=== PATIENT | female | born 1930 | race Caucasian/White ===

== ENCOUNTER 2016-07-31 17:30 | Inpatient (IN) | payer MEDICARE, OTHER ==
[~2016-07-31] VITALS: Ht 154.9 cm; Wt 56.8 kg
--- NOTE | ~2016-07-31 | CON ---
PATIENT'S NAME: [facility] AGE: 85 Y [address] ROOM: [address] [address] [place] [facility] [place] DATE: 07/31/2016 Consultation DISCHARGE DATE: 08/25/2016 FAMILY PHYSICIAN: Waldemar Franks MD ATTENDING PHYSICIAN: Mayo Mcmahan DATE OF CONSULTATION: 08/03/2016 REFERRING PHYSICIAN: Marissa Loo MD INDICATION: Pleural effusion. HISTORY OF PRESENT ILLNESS: This is an 85-year-old female, admitted for back pain that has been progressively getting worse over the last few weeks. She was evaluated by her primary care physician in [place] with a CT of the abdomen and pelvis which showed possible diskitis at L4 through S1 as well as right as right-sided pleural effusion and nodule pulmonary nodules at the lung bases. She has a history of breast cancer, lymphoma, PAF, thoracic aneurysm, and falls with a hip repair last year. She previously had a thoracentesis last year that was negative for malignancy. Currently, she denies any shortness of breath, PND, orthopnea, cough, wheezing, hemoptysis, or edema. Pain is controlled with pain pills right now. PAST MEDICAL HISTORY: Includes history of breast cancer, history of lymphoma, falls, hypertension, paroxysmal atrial fibrillation, and thoracic aortic aneurysm. ALLERGIES: SEE MAR. MEDICATIONS: See MAR. FAMILY HISTORY: History of diabetes and stroke. SOCIAL HISTORY: She denies any tobacco use. No alcohol or illicit drug use. REVIEW OF SYSTEMS: A 12-point review of systems is negative except for what is noted in the HPI. PHYSICAL EXAMINATION: VITAL SIGNS: Blood pressure 149/76, pulse 67, respirations 18, temperature PATIENT'S NAME: [facility] AGE: 85 Y [address] ROOM: [address] [address] [place] [facility] [place] DATE: 07/31/2016 Consultation DISCHARGE DATE: 08/25/2016 FAMILY PHYSICIAN: Waldemar Franks MD ATTENDING PHYSICIAN: Mayo Mcmahan 97.3, and she is 96% on 1 L nasal cannula. GENERAL: This is an 85-year-old female who is alert and oriented x3 and appears in no acute distress at the time of exam. HEENT: Head: Normocephalic and atraumatic. Eyes clear. NECK: Supple. No adenopathy. No carotid bruits or JVD. LUNGS: Decreased breath sounds at the right lung base with dullness on percussion. HEART: Regular rate and rhythm without murmur, gallop, or rub. ABDOMEN: Soft, nontender, and nondistended. Bowel sounds x4. EXTREMITIES: No cyanosis, clubbing, or edema. DIAGNOSTIC DATA: Sodium 138, potassium 3.9, CO2 25, BUN 15, and creatinine 0.7. WBC 9, hemoglobin 11.3, hematocrit 34.6, and platelets 225. A CT of the chest is still pending. Bedside ultrasound performed showed a right-sided moderate-to- large pleural effusion without loculation. There is no left-sided effusion. ASSESSMENT: 1. Right-sided pleural effusion, concerning for malignancy. 2. Acute respiratory failure due to right-sided pleural effusion. 3. Pulmonary nodules, enlarging in size, concern for malignancy. 4. History of breast cancer. 5. History of lymphoma. PLAN: We will plan for diagnostic and therapeutic right-sided thoracentesis. The indications, risks, benefits, and alternatives were discussed with the patient, and she has agreed to proceed with the procedure. We will follow up on Hematology and Oncology recommendations from today as well as make further recommendations pending the results from her fluid studies and cytology. Thank you for the consult and opportunity to participate in the patient's care. CELIA GASTELUM APRN FOR AUDRA AVILA MD [facility]/lexisl /[id number] d: 09/13/16 0230 t: 10/03/16 1351, CONSULTATION REPORT
--- NOTE | ~2016-07-31 | DS ---
PATIENT'S NAME: MICHELLE SOUSA [facility] AGE: 85 Y [address] ROOM: [address] [place] [id number] LOCATION: [facility] [place] ADMIT DATE: 07/31/2016 Discharge Summary DISCHARGE DATE: 08/25/2016 FAMILY PHYSICIAN: Waldemar Franks MD ATTENDING PHYSICIAN: Uvaldo GERARD FINAL DIAGNOSES: 1. 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 2. Acute hypoxic respiratory, now resolved. 3. Malignant right pleural effusion, status post PleurX drain. 4. Paroxysmal atrial fibrillation. 5. Essential hypertension. 6. Cauda equina syndrome, secondary to pathologic metastases. 7. Recurrent nausea. CONSULTANTS ON THE CASE: Dr. Gonzalez, Dr. Mata, Dr. Karlos Hills, Dr. Luis, in Palliative Care. PROCEDURES: L4-5 biopsy and aspiration on 08/03/[address] Hills, right thoracentesis on 08/03/[address] Luis, and right PleurX drain placement on 08/09/[address] Samayoa. HOSPITAL COURSE: Please see details of admission H and P by Dr. Kwaku Bailon. Briefly, the patient was admitted to [facility] with extensive back pain and weakness. Upon initial evaluation, the patient was found to have pulmonary nodules. Oncology was notified of her admission and followed along throughout the duration of her case. The patient's pain initially was controlled with [place] and Palliative Care was consulted on 08/01/2016. Throughout her entire hospital course, the patient battles with episodes of nausea and vomiting. Unclear what the true etiology was, secondary to multiple offending factors, most notably, chemotherapy, radiation, and medications. Dr. Hills was consulted, secondary to epidural tumor causing cauda equina type symptoms. Dr. Mata was consulted for further evaluation and treatment. On 08/02/2016, Palliative Care met with the patient and family to establish goals and symptom management. On the , Dr. Karlos Hills was also consulted and planned for L4-5 aspiration and biopsy. On 08/03/2016, Pulmonary consulted and felt the need for thoracentesis of the large right pleural effusion. This was accomplished without difficulty. Fluids were sent for further evaluation. Dr. Gonzalez ordered a PET scan on 08/08/2016 for staging. After further evaluation of her back pain and symptoms, TLSO brace was placed for any upright activity. The patient's appetite also waxed and waned throughout her stay depending on her courses of nausea. The patient had again a PleurX drain placed on 08/09/2016. She tolerated the procedure well. Outputs were recorded daily never greater than PATIENT'S NAME: MICHELLE SOUSA [facility] AGE: 85 Y [address] ROOM: [address] [address] LOCATION: [facility] [place] ADMIT DATE: 07/31/2016 Discharge Summary DISCHARGE DATE: 08/25/2016 FAMILY PHYSICIAN: Waldemar Franks MD ATTENDING PHYSICIAN: Uvaldo GERARD 300 mL. On the , radiation began with a total dose of 3000 fractions with 300 per episode. The patient developed a slight hypotension and was given albumin infusion. Blood pressure medications were held. We were able to resume her metoprolol on the without further complication. The patient suffered from some insomnia and Seroquel was started at bedtime with positive effects. The patient was established as DNR/DNI on 08/14/2016 per family discussion with Palliative Care. Respiratory Therapy continued severity scoring throughout her stay. The patient continued to work with physical and occupational therapies gaining strength and endurance as the radiation treatments continued. The patient was able to complete her radiation therapy on 08/25/2016. At that time, it was felt that she should pursue alf treatment for further convalescence and gaining of strength and endurance. The patient was transferred to [facility] under the care of Dr. Franks on 08/25/2016 with further followup with Dr. Hills, Dr. Mata, and Dr. Montero. DIAGNOSTICS: The patient underwent several radiologic exams throughout her stay here. Not all will be discussed in detail. Please see reports for that information. Most notably, MRI of the lumbar spine on the shows extensive lymphoma involvement of the lumbar spine especially at L4 and 5, pathologic fracture at L4, and epidermal tumor present producing a stenotic inferior lumbar canal, also to be noted is soft tissue involvement in the retroperitoneum. CT scan of the chest on 08/01/2016 shows worsening appearance, new large right pleural fluid collection, as well as posterior right upper lung mass and anterior right upper lung nodule, which is increased since prior imaging. PET scan done on 08/07/2016 showed multifocal osseous metastatic disease most prominent at L4, L5, and S1, metastases in the right lung, right pleura, mediastinum, and large malignant right pleural effusion. Also, noted is probable liver metastasis. Chest x-ray views post- thoracentesis show a right-sided pleural drainage catheter in place with stable positioning. Again, multiple laboratory studies were drawn throughout her stay. Highlights given here. On admission, sodium was 137, potassium 3.9, chloride 101, bicarb 26, glucose 106, BUN 19, creatinine 1.0, CRP was 1.29 on admission. Sodiums did show mild hyponatremia with a low at 128; and on day of discharge, it was 131. Creatinine and BUN remained stable throughout her stay. Pleural fluid exhibited a transudative pattern. On admission, white blood cell count was 8.2, hemoglobin 11.3, hematocrit 32.7, and platelets 221. Prior to discharge, hemoglobin was 8.7, hematocrit was 26.1, and platelets 190. Pleural fluid culture was negative at 3 days. Aspirate of the L4-L5 disk space also exhibited no growth at 3 days. Path report from the pleural fluid of the right thoracentesis shows adenocarcinoma and pathology of the L4-L5 bone and soft tissue biopsy shows metastatic carcinoma. Echo done on 08/06/2016 shows an EF of 45% to 50%. Moderate-to- concentric left ventricular hypertrophy. Grade 1 diastolic dysfunction. Left and right atrium are [id number] dilated. She does have moderate PATIENT'S NAME: MICHELLE SOUSA [facility] AGE: 85 Y [address] ROOM: [address] [place], [place] [address] LOCATION: [facility] [place] ADMIT DATE: 07/31/2016 Discharge Summary DISCHARGE DATE: 08/25/2016 FAMILY PHYSICIAN: Waldemar Franks MD ATTENDING PHYSICIAN: Uvaldo GERARD aortic regurgitation and severe tricuspid regurgitation. The patient has moderate pulmonary hypertension with pulmonary pressure of 54 mmHg. DISCHARGE INSTRUCTIONS: The patient is discharged to [facility] under the care of Dr. Franks with Dr. Hills, Dr. Montero, and Dr. Mata. Following on the patient, her code status is DNR. Diet is regular as tolerated. Weightbearing status is as tolerated with fall precautions. TLSO is to remain on while upright. The patient is to continue with occupational and physical therapies and respiratory therapy as needed. The patient does have a PleurX catheter in place drain every other day and as needed for shortness of breath. Drainage totals are to be recorded and called to Elin Nova on 09/08/[address] [facility]. The patient's rehab potential is fair. Discharge potential is fair. The patient and family are aware of her condition and prognosis on discharge. DISCHARGE MEDICATIONS: 1. Arimidex 1 mg daily at bedtime. 2. Colace 100 mg twice daily as needed. 3. Metoprolol 25 mg twice daily. 4. Zofran 4 mg 3 times daily before meals. 5. Lyrica 100 mg at bedtime. 6. Seroquel 50 mg at bedtime. 7. Tylenol 650 mg every 4 hours as needed. 8. Dulcolax suppository daily as needed. 9. Milk of mag 30 mL daily as needed. 10. Reglan 5 mg p.o. 3 times daily as needed. 11. MiraLAX 17 g daily as needed. 12. Compazine 10 mg every 6 hours needed. 13. Nucynta 50 mg every 4 hours as needed. We do appreciate participating in this patient's care and thank you very much for the ability to serve her while hospitalized at [facility]. Time spent coordinating details of discharge was greater than 30 minutes of which was spent coordinating with consulting physicians and Care Management, completion of medication reconciliation, education of the patient and family on the above-mentioned diagnoses. We spent 45 minutes in discharge planning and coordinationg care for this patient. DIMA CARMICHAEL FOR MEREDITH GILBERT MD [facility]/modl PATIENT'S NAME: MICHELLE SOUSA [facility] AGE: 85 Y [address] ROOM: [address] [address] LOCATION: [facility] [place] ADMIT DATE: 07/31/2016 Discharge Summary DISCHARGE DATE: 08/25/2016 FAMILY PHYSICIAN: Waldemar Franks MD ATTENDING PHYSICIAN: Uvaldo GERARD /[id number] d: 08/26/165 t: 09/06/16 1242, DISCHARGE SUMMARY
--- NOTE | ~2016-07-31 | ECHO ---
Transthoracic Echocardiography Report (TTE) Demographics Patient Name MICHELLE SOUSA Date of Study 08/06/2016 E Patient Number [id number] Visit Number [id number] Date of 1930 Room Number G3207 Gender Female Number Age 85 year(s) Referring Cigarette Machine Operator Racquel RVT, RDCS Physician Yara Physician Interpreting Kwaku Escamilla A Paint Crew Supervisor Physician MD Supervising Ordering Armaan Valentine MD, MD/MLP Physician Nurse Stress Knot Saw Operator Conclusions Summary The estimated left ventricular ejection fraction is 45-50%. Moderate to severe concentric left ventricular hypertrophy. Diastolic assessment reveals Grade I diastolic dysfunction. Moderately reduced right ventricular function. The left atrium is moderately dilated. The interatrial septum appears mobile without evidence of shunting. The right atrium is moderate to severely dilated. Moderate-severe mitral regurgitation by color Doppler. There is moderate aortic regurgitation by color Doppler. Severe tricuspid regurgitation by color Doppler. There is moderate pulmonary hypertension. The pulmonary pressure (RVSP) is 54 mmHg. Mild-moderate pulmonic valve regurgitation by color Doppler. There is reversal in the pulmonary vein flow. The interventricular septum is flattened which is consistent with right ventricular pressure / and or volume overload. Trivial posterior pericardial effusion. Procedure Type of Study TTE procedure:2D Echocardiogram, M-Mode, Doppler , Color Doppler. Procedure Date Date: 08/06/2016 Start: 10:35 AM Study Location: Inpatient Portable Technical Quality: Good visualization Indications:Pleural effusion. Appropriate Use Criteria: 9 Patient Status: Routine HR: 66 bpm BP: 94/41 mmHg M-Mode/2D Measurements LV Diastolic Dimension: 3.38 cm LV Systolic Dimension: 3.05 cm LV Septum Diastolic: 2.05 cm LV PW Diastolic: 2.11 cm AO Root Dimension: 3 cm Cardiac Output: 3.45 l/min AV Cusp Separation: 1.1 cm RV Diastolic Dimension: 2.53 cm LA volume: 29 ml LVOT: 2.3 cm RV Base: 2.79 cm LVOT VTI: 12.6 cm RV Mid: 2.81 cm LV Stroke volume: 52.32 ml TAPSE: 1.8 cm TDI-S': 4.51 cm/s Doppler Measurements AV Peak Velocity: 1.52 m/s MV Peak E-Wave: 0.78 m/s AV Peak Gradient: 9.24 mmHg MV Peak A-Wave: 0.66 m/s AV Mean Gradient: 6 mmHg MV E/A Ratio: 1.17 LVOT Peak Velocity: 0.54 m/s MV P1/2t: 60 msec TR Gradient:38.94 mmHg PV Peak Velocity: 0.68 m/s Estimated RAP:10 mmHg PV Peak Gradient: 1.85 mmHg Estimated RVSP: 49 mmHg Estimated PASP: 48.94 mmHg E' Septal Velocity: 0.02 m/s A' Septal Velocity: 0.04 m/s E' Lateral Velocity: 0.06 m/s A' Lateral Velocity: 0.04 m/s Findings Left Ventricle Moderate to severe concentric left ventricular hypertrophy. Diastolic assessment reveals Grade I diastolic dysfunction. The interventricular septum is flat. Septal hypokinesis Right Ventricle Moderately reduced right ventricular function. Left Atrium The left atrium is moderately dilated. The interatrial septum appears mobile without evidence of shunting. Right Atrium The right atrium is moderate to severely dilated. Mitral Valve Mild mitral annular calcification. Moderate-severe mitral regurgitation by color Doppler. Aortic Valve The aortic valve is moderately sclerotic. There is moderate aortic regurgitation by color Doppler. Tricuspid Valve Severe tricuspid regurgitation by color Doppler. There is moderate pulmonary hypertension. The pulmonary pressure (RVSP) is 54 mmHg. Pulmonic Valve Mild-moderate pulmonic valve regurgitation by color Doppler. Pericardial Effusion Trivial posterior pericardial effusion. Miscellaneous There is reversal in the pulmonary vein flow. Pleural Effusion No evidence of pleural effusion. Signature dtt: Hoa Ames dtd: 08/06/16 1035 Physician Self Edit
--- NOTE | ~2016-07-31 | CON ---
PATIENT'S NAME: KSENIA SOUSA [facility] AGE: 85 Y [address] ROOM: [id number] [place], [place] [address] [place] [facility] [place] DATE: 07/31/2016 Consultation DISCHARGE DATE: FAMILY PHYSICIAN: Waldemar Franks MD ATTENDING PHYSICIAN: Uvaldo AMES REFERRING PHYSICIAN: Marissa Loo MD Consult to Dr. Bansal. 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 The history of present illness is obtained from Mrs. Sousa who is an earnest, but discursive and imprecise historian; her foster son and daughter- in-law who are helpful; from Dr. Bansal; review of the current and old [facility] chart; and review of the [facility] records. Mrs. Sousa makes a point she reached her zenith, following a crippling fall in August 2015, by May 2016. She had returned to her home [place] at [place]. She lived alone. She was no longer driving. She could not vacuum the house or perform heavy housework, but was able to do her own laundry. She was capable of self-care. She no longer participated in occupational or physical therapy and had no formal or informal exercise program. She used a 4-point walker on frequent occasions in her house, but was using it less frequently. Five weeks prior to her admission, the patient developed some pain in the lumbosacral area, which has gradually begun to radiate in an L4-L5 distribution, greater on the left than the right, associated with progressive weakness, greater in the left than the right. Approximately 1 month ago, she went to the emergency room in [place] and oral steroids and acetaminophen #3 were prescribed with mild benefit. However, the patient had persistent back pain. The pain started to interfere with her sleep and became disabling. Eventually, she fell when she got out of the bathroom. She bent over to case picker some crackers and her left leg crippled. She had a lifeline and summoned the rescue squad. She was placed in an ambulance and taken to the emergency room where oral steroids were prescribed again. This occurred approximately 2 weeks prior to her [facility] admission. The patient developed progressive disability and pain. The patient saw Leonila Singh APRN in [place]. The patient recalls she had a CAT scan, which may have been a CAT scan of the lumbar spine. There were changes suspicious for diskitis. Since the pain was disabling, she was transferred to Dr. Ames[facility] Hospitalist [facility] in [place]. White count was 8200 with 75% neutrophils and 13% lymphocytes. The hemoglobin is 11, the MCV was 94, the PATIENT'S NAME: KSENIA SOUSA [facility] AGE: 85 Y [address] ROOM: [id number] [place] [id number] [place] [facility] [place]: 07/31/2016 Consultation DISCHARGE DATE: FAMILY PHYSICIAN: Waldemar Franks MD ATTENDING PHYSICIAN: Uvaldo AMES platelets were 221K. The CMS revealed the albumin was low at 3.2 g/dL, but was otherwise unremarkable. The LDH was elevated at 378 International Units/L. The CRP was elevated at 1.29 mg/dL. An MRI of the lumbar spine revealed the lower spinal cord was normal. There was cauda equina nerve root redundancy in the mid lumbar canal secondary to inferior stenosis. There was complete replacement of L4-L5 vertebra by abnormal marrow signal, most suspicious of cancer, particularly lymphoma. There was a pathologic compression fracture of L4 with height loss. Much of the S1 vertebral body was replaced and there were lesions within L1, L2 and L3. At L4 and L5, posterior elements were involved, thickened and expanded by presumed tumor. There was soft tissue extension of tumor around the bones. The soft tissue tumor involved the epidural space from L3-4 down into the sacral canal producing spinal stenosis at L3-L4, L4-L5, and L5-S1. Passing and exiting nerve roots could be impinged. The foramina were stenotic, especially on the left-sided L4-L5. In the retroperitoneum, there was an ill-defined collar of soft tissue surrounding the infrarenal aorta. Bone lesions were present within the bilateral ilium medially around the SI joints. A chest x-ray revealed cardiomegaly, a thoracic aortic aneurysm, patchy opacity in the upper lobe of the right lung compatible with infiltrate and atelectasis, and a small volume of pleural fluid in the lower left and right hemithorax. A CAT scan of the thorax reveals a right pleural effusion and pulmonary nodule. The patient is referred for further recommendations. The patient has a history of breast cancer. In the fall of 2010, the patient palpated a mass in both breasts. She reported for evaluation. After evaluation and staging, the patient underwent a bilateral mastectomy on 05/10/2011. The patient had bilateral breast cancer. The patient had stage IIB breast cancer in both breasts. The right breast tumor was 3.1 cm, 1/2 axillary nodes was involved, and there was extranodal extension. The tumor was grade 2. Estrogen and progesterone receptors were positive. HER2 was not amplified (1+). The left breast tumor was 2.5 cm and 1/11 lymph nodes was involved with extranodal extension. Estrogen receptors were positive and progesterone receptors were negative. On 04/09/2012, docetaxel and cyclophosphamide were administered, but these were stopped after 1 cycle. The patient was on letrozole from August 2011 to November 2013 but did not adhere further. Oncotype DX score was 13 on one of the cancers and 40 on the other, which were low risk and high risk respectively. From the information available on the chart, it is not clear which Oncotype result was obtained on which breast. Mrs. Sousa has a history of non-Hodgkin's lymphoma. In 2006, the patient developed abdominal pain. 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 The presumption was she had an aggressive lymphoma. From August through November 2006, the patient received 6 cycles of R-CHOP with complete remission and there has been no evidence of PATIENT'S NAME: KSENIA SOUSA [facility] AGE: 85 Y [address] ROOM: [id number] [place], [place] [address] [place] [facility] [place] DATE: 07/31/2016 Consultation DISCHARGE DATE: FAMILY PHYSICIAN: Waldemar Franks MD ATTENDING PHYSICIAN: Uvaldo AMES Dr. performed a right thoracentesis when Mrs. Sosua was hospitalized following a damaging fall leading to a right femur fracture and fractured the odontoid process of C2. On 11/22/2015, Dr. Luis recommended a right thoracentesis because he was troubled by a 2-mm nodule in the upper lobe of the right lung as well as an 8-mm nodule in the upper lobe of the right lung. On 11/28/2015, the thoracentesis revealed rare clusters of atypical cells. The patient saw Dr. Loo in followup on 01/12/2016 and arrangements were made for evaluation in June of 2015. The patient was unable to follow up. ACTIVE MEDICAL PROBLEMS, CHRONIC AND DIAGNOSED: 1. Essential arterial hypertension noted in 2003. This may have been renovascular as Dr. Jean-Paul Hills placed a renal artery stent. 2. Atherosclerotic vascular disease(?). The patient is on cilostazol. 3. Ascending aortic aneurysm. On 09/27/2015, the aneurysm was 5.8 cm and it is now 6.1 cm. The patient has been evaluated by Dr. Edwardo Samayoa who visited with her about the pros and cons of resection of this aneurysm. The patient has decided to forego this opportunity. 4. Significant mitral regurgitation, moderate aortic regurgitation, and concentric left ventricular hypertrophy noted on CAT scan. 5. Paroxysmal atrial fibrillation, noted in 2003. The patient was medically converted at that time. She does not recall being converted mechanically. She has not been on anticoagulation. 6. Osteopenia with a T-score of -2.2 in August of 2015. The patient has been on denosumab, calcium, and vitamin D. 7. Nocturnal hypoxemia. The patient did not adhere to a recommendation for a sleep study. 8. Allergic rhinitis, treated with nonsedating histamines. 9. "Thyroid goiter.". 10. Hypercholesterolemia, noted in 2013. 11. 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 ACUTE MEDICAL ILLNESSES (RESOLVED), PAST SURGERIES, INJURIES: 1. 1952, appendectomy. 2. 1952, tonsillectomy and adenoidectomy. 3. 1991, fractured nose. 4. 1992, Varicella zoster virus involving a left lower lumbar vertebra. 5. 2004, right kidney arterial stent placed around the time she was admitted for initial characterization and treatment of atrial fibrillation. 6. 2006, biopsy to confirm strict non-Hodgkin's lymphoma. 7. 2010, (05/10) bilateral mastectomy for bilateral breast cancer as noted above. 8. 2015, (07/27) fall leading to a right femoral neck fracture requiring a PATIENT'S NAME: AL[facility]KSENIA [facility] AGE: 85 Y [address] ROOM: [place] [address] [place] [facility] [place]: 07/31/2016 Consultation DISCHARGE DATE: FAMILY PHYSICIAN: Waldemar Franks MD ATTENDING PHYSICIAN: Uvaldo AMES right hip hemiarthroplasty and C2 odontoid process fracture, requiring an anterior odontoid screw fixation on 11/05/2015. 9. Right ultrasound-guided thoracentesis on 11/27/2015. 10. 0, para 0, abortus 0. MEDICATIONS: Upon admission, 1. Acetaminophen. 2. Acetaminophen with codeine. 3. Albuterol inhaler. 4. Ascorbic acid 500 mg p.o. daily. 5. Calcium with vitamin D 1000 mg p.o. daily. 6. Hydralazine 25 mg p.o. b.i.d. 7. Metoprolol 25 mg p.o. b.i.d. 8. Multivitamins 1 tablet daily. 9. Pregabalin 50 mg daily. ADVERSE REACTIONS TO MEDICATIONS, TRANSFUSIONS, ALLERGIES: 1. No known allergies. 2. No transfusions. TOBACCO: None. ALCOHOL: None. CAFFEINE: 1-2 cups of coffee a day. IMMUNIZATIONS: Positive flu. Positive Pneumovax. Negative tetanus. Negative varicella zoster virus. FAMILY HISTORY: A brother of prostate cancer when he was older. SOCIAL HISTORY: The patient was born in [facility] and graduated from the [employer]. The patient worked at a [employer] home. She and was for 13 years, but has been since 1985. The patient had no children, but has had many foster children. One of her foster children currently lives in [place], [place] and the other lives in [place]. The patient, as noted, lives at her home outside [place]. She attends the [employer]. PATIENT'S NAME: KSENIA SOUSA [facility] AGE: 85 Y [address] ROOM: [address] [address] [place] [facility] [place] DATE: 07/31/2016 Consultation DISCHARGE DATE: FAMILY PHYSICIAN: Waldemar Franks MD ATTENDING PHYSICIAN: Uvaldo AMES REVIEW OF SYMPTOMS: 1. Nocturia 3-4 times at night. 2. The patient has had mild dysphagia since her C2 odontoid process fracture repair. 3. Subjective cold intolerance. 4. Longstanding tinnitus. 5. Mild asymptomatic heart palpitations. 6. Mild constipation, unchanged. PHYSICAL EXAMINATION: VITAL SIGNS: Pulse 72 and regular, blood pressure 140/55, respiratory rate 20, temperature 97.5, height 61 inches, weight 55.5 kg (122 pounds), and BMI 23.1 kg/m2. GENERAL: Well-developed, well-nourished, 85-year-old, female, in no acute distress. HEENT: Unremarkable. LYMPH NODES: None palpable. NECK: Without JVD or carotid bruits. SKIN: Seborrheic keratoses. waxy papules. CHEST: Decreased breath sounds at the right base to the scapula. CV: Irregularly irregular rhythm with no murmurs, bruits, or adventitious sounds. BREASTS: Status post bilateral mastectomy. ABDOMEN: No masses, tenderness, or organomegaly. There is a healed scar in the right lower quadrant of the abdomen, running from [place] to [place]. GENITAL: Not examined. RECTAL: Not examined. EXTREMITIES: Pulses 2+ in the upper extremities without peripheral edema. Compression devices are present in the lower extremities. Strength 2/5 in the left leg, 3/5 in the right leg. NEURO: Babinski plantar. The patient is oriented, alert, and appropriate. IMPRESSION: 1. An 85-year-old woman with a 4-6 week history of progressive, disabling back pain in the lumbosacral distribution with complete replacement of the L4 and L5 vertebra by abnormal marrow signal, an L4 pathologic compression and evidence of soft tissue extension of tumor and bony involvement of other vertebra and the ileum. 2. Pertinent positive history includes past bilateral breast cancer and past lymphoma. The patient had an aggressive lymphoma, but has been in a complete remission since she was treated in 2006. A late remission would be rare. On the other hand, the patient has a high risk for recurrence of breast cancer and this pattern is quite compatible with recurrence of breast cancer. She did not adhere to the recommendations for adjuvant PATIENT'S NAME: KSENIA SOUSA [facility] AGE: 85 Y [address] ROOM: [place] [address] [place] [facility] [place]: 07/31/2016 Consultation DISCHARGE DATE: FAMILY PHYSICIAN: Waldemar Franks MD ATTENDING PHYSICIAN: Uvaldo AMES radiation therapy and did not adhere to the recommendations for adjuvant aromatase inhibitors for longer than 2 years. 3. Recurrent breast cancer is a treatable disease. RECOMMEND: Diagnostic: 1. Right thoracentesis by Dr. Luis. 2. Radiation Oncology consultation from Dr. Mata. 3. Evaluation for an L4 biopsy and kyphoplasty by Dr. Karlos Hills. 4. CEA and CA 27-29. Treatment: 1. Depends on the findings. Patient education: 1. Made the point we suspect she has recurrent breast cancer metastatic to the bone and extending to the soft tissue, which is a treatable disease. 2. Made the point that the only way to confirm this working diagnosis would be with a biopsy and discussed the rationale for the consultations. NITA MENDEZ MD GKB/modl /[id number] CC: MD Triston Murphy MD, PhD MD Jarvis Jones MD d: 08/03/16 0035 t: 08/06/16 1346, CONSULTATION REPORT
--- NOTE | ~2016-07-31 | HP ---
PATIENT'S NAME: MICHELLE SOUSA [facility] AGE: 85 Y [address] ROOM: [place] [address] [place] [facility] [place]: 07/31/2016 History & Physical DISCHARGE DATE: FAMILY PHYSICIAN: Waldemar Franks MD ATTENDING PHYSICIAN: Uvaldo GERARD DATE OF SERVICE: CHIEF COMPLAINT: Back pain. HISTORY OF PRESENT ILLNESS: The patient is an 85-year-old female with a past medical history of breast cancer, status post mastectomy with chemoradiation; Non-Hodgkin's lymphoma in 2006, status post chemo and radiation; history of multiple falls with hip fracture, status post repair; and odontoid fracture with screw in 2015; paroxysmal atrial fibrillation, not on anticoagulation; and thoracic aortic aneurysm, who presents here from PCP's office with possible diskitis. The patient reports progressive several-week history of bilateral lower extremities pain and ache, radiating from the back to her lower extremity, left greater than right. The patient reports that pain has been progressively getting worse and has had weakness of her lower extremity. She also reports some numbness around her left lower extremity. She describes chest pain as shooting, starting from the back, radiating to her lower extremity, left greater than the right. She denies any saddle-like paraesthesia, and urinary and bladder incontinence. The patient denies fever, chills, night sweats, chest pain, shortness of breath, abdominal pain, nausea, vomiting, or diarrhea. She reports of weight loss; however, she attributes it to water loss due to diuretic use. She is currently off diuretics. The patient was seen by her PCP at [place] and had CT with contrast done, which shows L4 through S1 changes with suspicious for diskitis. CT chest also shows some incidental right pleural effusion with 3 nodules, the greatest one with 36 mm x 15 mm. PAST MEDICAL HISTORY: 1. History of breast cancer. 2. History of lymphoma. 3. Fall. 4. Hypertension. 5. Paroxysmal atrial fibrillation. 6. Thoracic aortic aneurysm. PAST SURGICAL HISTORY: 1. Odontoid screw fixation in October 2015. PATIENT'S NAME: MICHELLE SOUSA [facility] AGE: 85 Y [address] ROOM: [place] [address] [place] [facility] [place]: 07/31/2016 History & Physical DISCHARGE DATE: FAMILY PHYSICIAN: Waldemar Franks MD ATTENDING PHYSICIAN: Uvaldo GERARD 2. Mastectomy. 3. Right hip fracture with repair. FAMILY HISTORY: History of diabetes and stroke run in the family. SOCIAL HISTORY: The patient lives by herself. She does not have a biological children, but reports of having foster kids. She denies smoking or drinking. ALLERGIES: NO KNOWN ALLERGIES. MEDICATIONS: 1. Tylenol 325 mg. 2. Tylenol with codeine No. 3. 3. Albuterol. 4. Ascorbic acid. 5. Hydralazine 25 mg b.i.d. 6. Lopressor 25 mg b.i.d. 7. Multivitamin. 8. Pregabalin. REVIEW OF SYSTEMS: All 10 systems were evaluated. All negative except stated on the HPI. PHYSICAL EXAMINATION: VITAL SIGNS: Temperature 98, blood pressure 157/72, pulse 100, respiratory rate 16, O2 sat 85 on room air. GENERAL APPEARANCE: The patient is alert and awake, in no acute distress. HEENT: Moist oral mucosa. Extraocular muscles are intact. NECK: No supraclavicular or cervical lymph nodes noted. Neck is supple. LUNGS: Clear to auscultation bilaterally. No rhonchi, rales, or wheezing. CARDIOVASCULAR: Regular rate and rhythm. No murmur, rales, or gallops. No edema. ABDOMEN: Soft, nontender, nondistended, bowel sounds present. SKIN: Warm to touch. No lesion appreciated. EXTREMITIES: No edema. No axillary nodes appreciated. NEUROLOGICAL: Alert and oriented x3. Left lower extremity strength 4/5. Sensory grossly intact. LABORATORY DATA: There are no current labs. ASSESSMENT AND PLAN: PATIENT'S NAME: MICHELLE SOUSA [facility] AGE: 85 Y [address] ROOM: [place] [address] [place] [facility] [place]: 07/31/2016 History & Physical DISCHARGE DATE: FAMILY PHYSICIAN: Waldemar Farnks MD ATTENDING PHYSICIAN: Uvaldo GERARD The patient is an 85-year-old female with a past medical history of breast cancer, lymphoma, fall, hypertension, paroxysmal atrial fibrillation, who presents here from PCP's office for possible diskitis. 1. Possible diskitis. CT done at PCP's office with contrast shows possible diskitis of L4-S1. MRI was not required at that location, thus the patient is admitted for hospital. We will acquire MRI with and without contrast to further investigate L4-S1 lesion. No antibiotics will be initiated until diagnosis is confirmed. However, if the patient shows any signs of sepsis, we will consider initiating antibiotics. 2. Back pain with radiculopathy. The patient shows left lower extremity weakness 4/5, and it is radiculopathic pain. Pain control. We will acquire MRI to further investigate lesion. 3. Incidental lung nodules. Compared to CT chest done in August 2015, there were no nodules present, however, the patient was noted to have lung nodules on this image. We will hold off any imaging with contrast as the patient has received contrast today. We will follow up with renal function panel and repeat CT chest, abdomen, and pelvis with contrast to further investigate malignancy as the patient is in risk factor since she has a history of lymphoma and breast cancer. We will acquire CEA and CA 27-[address] Loo. We will consult Oncology in the morning. 4. Acute hypoxic respiratory failure. The patient's O2 sats in 85 on room air. No history of chronic hypoxic respiratory failure. We will start oxygen supplementation. We will acquire chest x-ray PA and lateral for further investigation, then follow up clinically. 5. Paroxysmal atrial fibrillation. Regular rhythm, at least on physical. However, the patient is on tele monitor. The patient is not on anticoagulation as the patient requested not to be placed on chronic anticoagulation. 6. Hypertension. We will continue home medications. 7. Thoracic aortic aneurysm. Last imaging done last year shows 6 cm aneurysm. We will follow clinically. The patient knows about the aneurysm and states she is not ready for surgery. 8. Deep venous prophylaxis, on heparin 5000 units t.i.d. 9. Discussed about code status. The patient is full code. Greater than 30 minutes was spent on admission and plan. MD RYAN CARMICHAEL/jaime PATIENT'S NAME: MICHELLE SOUSA [facility] AGE: 85 Y [address] ROOM: [place] [address] [place] [facility] [place]: 07/31/2016 History & Physical DISCHARGE DATE: FAMILY PHYSICIAN: Waldemar Franks MD ATTENDING PHYSICIAN: Uvaldo GERARD /[id number] D: 415 T: 134 HISTORY & PHYSICAL
--- NOTE | ~2016-07-31 | INT ---
PATIENT'S NAME: KSENIA SOUSA [facility] AGE: 85 Y [address] ROOM: [place] [address] [place] [facility] [place]: 07/31/2016 Oncology Report DISCHARGE DATE: FAMILY PHYSICIAN: Waldemar Franks MD ATTENDING PHYSICIAN: Uvaldo GERARD RADIATION THERAPY INTERVAL/PROGRESS NOTE DATE OF SERVICE: 08/15/2016 REFERRING PHYSICIAN: Marissa Loo MD DIAGNOSIS: Metastatic breast cancer to the LS spine. HISTORY OF PRESENT ILLNESS: Ksenia is an 85-year-old female, who was seen in weekly radiation therapy checks. The patient is currently at a dose of 1200 cGy out of 3000 cGy to her lumbosacral spine. The patient complains of left leg pain. She is currently an inpatient at [facility]. She has a Pleur-evac chest tube in place. The patient is wearing a TLSO immobilization device. She is on oxygen per nasal cannula. The patient feels she is breathing better. She still has pain to her lower back area. She states she is up with physical therapy in her room. The patient has pain to the right shoulder. She states she has difficulty with movement of the right shoulder secondary to pain. Alex Peterson APRN, acting as Dr. Agudelo's scribe for the physical examination, impression, and plan. PHYSICAL EXAMINATION: VITAL SIGNS: Temperature 98.4, pulse 76, respiratory rate 16, blood pressure 110/74, and oxygen saturation 94% on room air. Her pain was 5/10. Her weight is 70.4 kg. SKIN: No changes to the skin and her lumbosacral spine region. EXTREMITIES The patient's gait was not tested as she was sitting in the wheelchair. Patient has nasal cannula oxygen at 2 L. The patient has yellow justina fluid in her pleur-evac drainage tube. IMPRESSION AND PLAN: An 85-year-old female with metastatic breast cancer to the lumbosacral spine. We will continue with treatment. Dr. Agudelo will review the patient's films for any indication of treatment to the right shoulder. PATIENT'S NAME: KSENIA SOUSA [facility] AGE: 85 Y [address] ROOM: [place] [address] [place] [facility] [place]: 07/31/2016 Oncology Report DISCHARGE DATE: FAMILY PHYSICIAN: Waldemar Franks MD ATTENDING PHYSICIAN: Uvaldo GERARD ALEX PETERSON APRN FOR SHRUTHI AGUDELO MD, PHD LAD/modl /[id number] CC: MD Waldemar Hong MD Dennis P McGowan, MD David A Minnick, MD d: 08/15/16 1739 t: 08/26/16 0947, INTERVAL NOTE
--- NOTE | ~2016-07-31 | OR ---
PATIENT'S NAME: MICHELLE SOUSA [facility] AGE: 85 Y [address] ROOM: [place] [address] LOCATION: [facility] [place] ADMIT DATE: 07/31/2016 OR/Procedure Report DISCHARGE DATE: FAMILY PHYSICIAN: Waldemar Franks MD ATTENDING PHYSICIAN: Uvaldo GERARD SURGEON: Edwardo Chin DO APPLICATION PACKAGER: DATE OF PROCEDURE: 08/09/2016 PREOPERATIVE DIAGNOSES: 1. Recurrent right pleural effusion. 2. Stage IV breast carcinoma. 3. History of lymphoma. POSTOPERATIVE DIAGNOSES: 1. Recurrent right pleural effusion. 2. Stage IV breast carcinoma. 3. History of lymphoma. PROCEDURE PERFORMED: Insertion of right PleurX catheter. REFERRING PHYSICIAN: Mono Gonzalez MD BRIEF HISTORY: Mrs. Sousa is an 85-year-old white female with the above- noted diagnosis. She has been brought to the operative suite today for placement of a right PleurX drain. Informed consent has been obtained. DESCRIPTION OF PROCEDURE: The right lateral chest wall and anterior chest wall were sterilely prepped and draped in the usual fashion. After appropriate IV sedation was achieved, 1% lidocaine was used to infiltrate 2 spots anteriorly and 1 in the mid axillary line. Under fluoroscopic guidance, we accessed the pleural space after creating 2 stab incisions. The catheter was then tunneled subcutaneously and placed into the pleural space via the sheath and dilator assembly. Sheath was removed, and the catheter was secured in position with 0 silk. The catheter was connected to suction. Approximately 850 mL of pleural fluid was withdrawn easily from the pleural space, and the patient tolerated the procedure well. She was transferred to the regular recovery room in stable condition. EDWARDO CHIN DO MCB/modl PATIENT'S NAME: MICHELLE SOUSA [facility] AGE: 85 Y [address] ROOM: [place] [address] LOCATION: [facility] [place] ADMIT DATE: 07/31/2016 OR/Procedure Report DISCHARGE DATE: FAMILY PHYSICIAN: Waldemar Franks MD ATTENDING PHYSICIAN: Uvaldo GERARD /[id number] d: 08/22/16 1803 t: 08/23/16 0743, OPERATIVE SUMMARY
--- NOTE | ~2016-07-31 | CON ---
PATIENT'S NAME: MICHELLE SOUSA [facility] AGE: 85 Y [address] ROOM: [place] [address] LOCATION: [facility] [place] ADMIT DATE: 07/31/2016 Consultation DISCHARGE DATE: FAMILY PHYSICIAN: Waldemar Franks MD ATTENDING PHYSICIAN: Uvaldo GERARD DATE OF CONSULTATION: 08/02/2016 REFERRING PHYSICIAN: Marissa Loo MD TIME: 9:30 p.m. HISTORY OF PRESENT ILLNESS: Ms. Sousa is an 85-year-old white female with a history of breast cancer and also lymphoma in the past, was admitted with a 2-week history of increasing left leg weakness, left leg pain, and some degree of back pain, was suspected of having a diskitis, was transferred to the [facility] on July 31 for further evaluation. No loss of bowel or bladder control. Reports some weakness in her left leg but not clearly in the foot, has some numbness in the left leg, not sure how significant her back pain is. Also, not sure how significant the left leg pain is. She has not felt ill recently. No loss of weight. No fevers, chills, or sweats. No infections elsewhere. PAST MEDICAL HISTORY: Has an odontoid fracture and a right hip fracture in the past. Has cervical spondylosis with some degree of stenosis in her neck. History of breast cancer, history of lymphoma, atrial fibrillation, hypertension, and thoracic aneurysm. HABITS: Does not smoke. Does not drink alcohol. No drug abuse. MEDICATIONS: Does take Lyrica. No anticoagulants for the atrial fibrillation. Not on medications for osteoporosis. See list for other medicines. FAMILY MEDICAL HISTORY: Diabetes and stroke. REVIEW OF SYSTEMS: As above. PERSONAL AND SOCIAL HISTORY: Lives by herself. PATIENT'S NAME: MICHELLE SOUSA [facility] AGE: 85 Y [address] ROOM: [place] [address] LOCATION: [facility] [place] ADMIT DATE: 07/31/2016 Consultation DISCHARGE DATE: FAMILY PHYSICIAN: Waldemar Franks MD ATTENDING PHYSICIAN: Uvaldo GERARD ALLERGIES: NO KNOWN ALLERGIES. PHYSICAL EXAMINATION: GENERAL: White female, in no distress. HEENT: Hears and sees. NECK: Nontender. Incision healed. Moves without pain. SPINE: Thoracic spine: Nontender to percussion. Lumbar spine: Nontender to percussion. PELVIS: Stable. HEART: Pulse rate is regular. LUNGS: Able to take in a deep breath. ABDOMEN: Soft, nontender, and nondistended. NEUROLOGIC: Sensation is intact in the upper extremities, lower extremities, and torso. Motor strength; biceps 5/5 bilaterally, triceps 5/5 bilaterally, wrist extensors 5/5 bilaterally, nursing officer are 5/5 bilaterally, intrinsics 5/5 bilaterally, iliopsoas 5/5 on the right and 3/5 on the left, quadriceps 5/5 bilaterally, anterior tib 5/5 on the right and 4/5 on the left, extensor hallucis longus 5/5 bilaterally, gastrocs 5/5 bilaterally. Tone is normal. Straight leg raise is negative. Bowstring test is negative. Tinel's over the lateral femoral cutaneous nerves is negative bilaterally. Distal pulses are present. No pedal edema. IMAGING: MRI of the low back shows lateral compression fracture of lumbar 4 with changes within the marrow. Also, changes in lumbar 5 and to a lesser degree, the sacrum and other levels. Soft tissue in the epidural space from lumbar 3, 4 down to the sacrum and also paraspinous tissues. CT scan of the lumbosacral spine shows mottled appearance to the lumbar 4 and lumbar 5 vertebral bodies and lesser degree the sacrum. Left lateral compression of lumbar 4 vertebrae. No bursting of the bone. CT scan of the pelvis, no involvement of either hip. Hemiarthroplasty in place on the right. X-rays of the low back, left lateral compression of lumbar 4. LABORATORIES: C-reactive protein slightly elevated at 1.29. Sedimentation rate normal at 26. White blood count 8.2, hemoglobin 11.0. ASSESSMENT AND PLAN: Most likely destruction of cancer but certainly infection can be the great imitator. Has had a previous history of lymphoma and breast cancer. Also, discussed if this were cancer, vertebral body augmentation likely would improve the back pain but not likely improve neuropathic leg pain or weakness. On repeated discussions with Ms. Sousa, not clear how significant her back pain is. Certainly, she has only mild weakness, not only consistent with the PATIENT'S NAME: ARNALDO SOUSALIS Yamel [facility] AGE: 85 Y [address] ROOM: [address] [address] LOCATION: [facility] [place] ADMIT DATE: 07/31/2016 Consultation DISCHARGE DATE: FAMILY PHYSICIAN: Waldemar Franks MD ATTENDING PHYSICIAN: Uvaldo GERARD lumbar 5 nerve root on the left but also has some weakness about her iliopsoas which cannot be explained by the soft tissue masses. Possible that she may also have some myelopathy from her known stenosis in the cervical spine or previous odontoid fracture. No evidence of any destruction about the left hip. At this time, we will do a biopsy of lumbar 4 and lumbar 5 and attempt at aspiration of this to be absolutely sure there is no infection. We will place her in a soft thoracolumbosacral orthosis and mobilizer. If clearly she has significant back pain, we would offer her a staged vertebral body augmentation. If it is lymphoma and neuropathic leg pain remained significant, chemotherapy is likely to be helpful and possibly even radiation therapy. Ms. Sousa understands the plan of treatment. CAROLA VILLELA MD DPM/jaime /[id number] d: 08/03/16 175 t: 08/08/16 180, CONSULTATION REPORT
--- NOTE | ~2016-07-31 | INT ---
PATIENT'S NAME: KSENIA SOUSA [facility] AGE: 85 Y [address] 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 HISTORY OF PRESENT ILLNESS: Ksenia is an 85-year-old female, who was seen in weekly radiation therapy visits. She is at a dose of 2400 cGy out of 3000 cGy to the lumbosacral spine. The patient states her pain is much improved. She is not having low back or left hip pain. She states in the evening her left leg starts to hurt. The patient takes a pain pill which alleviates her pain. The patient is wearing a TLSO brace while she is up. Cindy Mckeon APRN, acting as Dr. Mata's scribe for the physical examination, impression, and plan. PHYSICAL EXAMINATION: VITAL SIGNS: Temperature 97.6, pulse 70, respiratory rate 16, blood pressure 119/45, and oxygen saturation 94% on room air. Pain was 3/10. Weight was 52.8 kg, down from 54.3 kg last week. GENERAL APPEARANCE: The patient is alert and oriented x3. NEUROLOGIC: Gait was not tested as she was in the wheelchair. The patient has a TLSO brace on. SKIN: Patient's skin was checked while she was being positioned on the treatment table. No redness or skin breakdown noted to the posterior low back or inguinal creases in the front. IMPRESSION AND PLAN: The patient has 2 treatment fractions left before completing her current prescription. The patient will be given a 1-month followup appointment. We will continue with treatment. PATIENT'S NAME: KSENIA SOUSA [facility] AGE: 85 Y [address] ROOM: [place] [address] [place] [facility] [place] DATE: 07/31/2016 Oncology Report DISCHARGE DATE: FAMILY PHYSICIAN: Waldemar Franks MD ATTENDING PHYSICIAN: Uvaldo GERARD AVI YOUNG MD, PHD LAD/modl /[id number] CC: MD Waldemar Hong MD Dennis P McGowan, MD David A Minnick, MD d: 08/22/16 1517 t: 09/05/16 1150, INTERVAL NOTE
--- NOTE | ~2016-07-31 | OR ---
PATIENT'S NAME: MICHELLE SOUSA [facility] AGE: 85 Y [address] ROOM: [address] [address] LOCATION: [facility] [place] ADMIT DATE: 07/31/2016 OR/Procedure Report DISCHARGE DATE: FAMILY PHYSICIAN: Waldemar Franks MD ATTENDING PHYSICIAN: Uvaldo GERARD SURGEON: Audra Avila MD DATE OF PROCEDURE: 08/03/2016 PROCEDURE: Right-sided ultrasound-guided thoracentesis. INDICATIONS AND PREPROCEDURE DIAGNOSES: 1. Large right-sided pleural effusion. 2. Acute respiratory failure. 3. History of breast cancer. 4. History of lymphom. CONSENT: Consent was obtained from the patient prior to the procedure. Indications, risks, and benefits were explained at length. PROCEDURE SUMMARY: A time-out was performed. The patient was prepped and draped in a sterile manner using chlorhexidine scrub after the appropriate level was percussed and confirmed by ultrasound. Ultrasound images were permanently documented. The point of needle entry was chosen in the in the 8th intercostal space along the midscapular line. A finder needle was used to locate fluid. Justina colored fluid was obtained. A 10 blade scalpel was used to make a small incision. The thoracentesis catheter was then threaded without difficulty. The patient had 1200 mL of justina looking fluid removed. No immediate complications were noted during the procedure. A postprocedure chest x-ray is pending at the time of this dictation. The fluid will be sent for several studies, including flow cytometry. Please see separate orders. ESTIMATED BLOOD LOSS: Less than 5 mL. AUDRA AVILA MD RFN/modl /[id number] d: 08/03/16 1738 t: 08/07/16 0917, OPERATIVE SUMMARY
--- NOTE | ~2016-07-31 | CON ---
[facility] 85 Y [address] ROOM: [address] [place] [address] LOCATION: [facility] [place] ADMIT DATE: 07/31/2016 Consultation DISCHARGE DATE: FAMILY PHYSICIAN: Waldemar Franks MD ATTENDING PHYSICIAN: Uvaldo GERARD LOCATION: [id number]. REFERRING PHYSICIAN: Liat Bansal MD This is a Palliative Care referral for the patient and family support, and goals of care. HISTORY OF PRESENT ILLNESS: This 85-year-old female was admitted on 07/31/2016 with complaints of back pain, falling, and weakness in lower extremities. She was complaining of pain radiating from her back to her lower extremity greater on the left. She had been falling and having weakness in the lower extremities, which had been getting worse, having some numbness in the lower extremities. She had a CT scan in [place], which showed L4 through S1 suspicious of diskitis. CT also revealed an incidental right pleural effusion with 3 nodules, greatest one was 36 mm. The patient was transferred to [facility] for higher level of care. PAST MEDICAL HISTORY: Breast cancer, post mastectomy bilaterally with chemo radiation, non-Hodgkin lymphoma in 2006 status post chemo, multiple falls with a hip fracture, status repair, hypertension, paroxysmal atrial fibrillation, and a thoracic aortic aneurysm the patient had declined to do anything about. PAST SURGICAL HISTORY: Odontoid screw fixation in October 2015, mastectomy bilateral in 2010, right hip fracture with repair, appendectomy, tonsillectomy, bilateral cataracts right renal stent in 2004, right hip repair in 2015, cervical fracture in 2015. One sister had a CVA, one had an MA, one had diabetes mellitus, brother had prostate cancer, and another brother with diabetes mellitus. SOCIAL HISTORY: The patient is since 1983. Had no biological children, but raised 2 foster sons since they were 5 than 6 to adulthood. No alcohol or tobacco use. She is retired. [place] [facility]: [facility] 85 Y [address] ROOM: [address] [address] LOCATION: [facility] [place] ADMIT DATE: 07/31/2016 Consultation DISCHARGE DATE: FAMILY PHYSICIAN: Waldemar Franks MD ATTENDING PHYSICIAN: Uvaldo GERARD HOME MEDICATIONS: 1. Tylenol 325 mg. 2. Tylenol with Codeine #3 p.r.n. pain. 3. Albuterol. 4. Ascorbic acid. 5. Hydralazine 25 mg b.i.d. 6. Lopressor 25 mg b.i.d. 7. Multivitamin. 8. Pregabalin. 9. Prolia or denosumab 600 mg subcu every 6 months' x1 year. ALLERGIES: HYDROCODONE. REVIEW OF SYSTEMS: A 10-point review of systems was done and is negative except as mentioned in HPI and listed below. RESPIRATORY: Denies any cough, shortness of breath. GI: Was nauseated early and vomited. Nausea has lessened. Does have some problems with constipation. Feels like she does need to have a bowel movement. More constipated since taking pain pills. : No dysuria or frequency. MUSCULOSKELETAL: Complains of low back pain radiating to her legs, worse on left. Rates pain about 6/10. Pain pills help. PSYCH: No history of depression. Handling news from Dr. Gonzalez fairly well. had with cancer and she has a long history of cancer, is accepting of diagnosis, good family support. Foster son had told her that she could come and live with them. He was getting a room ready. PHYSICAL EXAMINATION: GENERAL: This is an 85-year-old, female. VITAL SIGNS: Temperature 98, pulse 76, respirations 16, blood pressure 130/63, O2 saturations 94%. She is on oxygen at 2 L. She is 5 feet 1 inch, weighs 122 pounds with a BMI of 23.1. Last BMI on 11/10/2015 was 27.4. GENERAL: Alert and oriented, in no acute distress. SKIN: Warm and dry. Color pale. HEENT: Head: Normocephalic and atraumatic. Sclerae are nonicteric. Conjunctivae are pale pink. Mouth is pink and moist without exudate. LYMPH: No cervical adenopathy or thyromegaly. Trachea midline. RESPIRATORY: Clear to auscultation. Breath sounds are even and regular. CARDIAC: S1 and S2 without murmurs or bruits. No JVD. No lower extremity edema. ABDOMEN: Soft, nontender. Positive bowel tones. No hepatosplenomegaly. NEUROLOGICAL: Grossly intact. No focal deficits. MUSCULOSKELETAL: Appropriate range of motion. Left lower extremity, PATIENT'S NAME: MICHELLE SOUSA [facility] AGE: 85 Y [address] ROOM: [address] [address] LOCATION: [facility] [place] ADMIT DATE: 07/31/2016 Consultation DISCHARGE DATE: FAMILY PHYSICIAN: Waldemar Franks MD ATTENDING PHYSICIAN: Uvaldo GERARD decreased strength, 4/5. EXTREMITIES: No cyanosis or edema. Palliative performance scale is 40% mainly in bed, unable to do most activity. Total care, intake is reduced. Conscious level is full. IMPRESSION: Back and leg pain, constipation, and weakness. PLAN: 1. Met with the patient. Discussed current condition and after talking with Dr. Gonzalez, the patient has a very good understanding of the patient's condition, her spinal stenosis, possible breast cancer with metastasis to the bone with fracture leading to collapse of fourth lumbar vertebrae. Overall, the patient has a very good understanding of current condition and treatment goals. Possible kyphoplasty to help minimize pain and increased quality of life. The patient is open to treatment. Hoping to see Reinier and Dr. Mata and if possible Dr. Luis for further treatments. 2. Code status and advance directive: The patient does have a copy of advance directive and is on the chart. Did review the advance directive. The patient states that she has done a new one and was okay to call Jesus Allan, contract attorney in [place], to get the latest copy because she had changed power of attorneys to her foster sons. Did call Jesus Allan and he will fax us a copy. Also reviewed the POLST form (Physician's Order for Life-Sustaining Treatment) form with discussion on code status as cancer progresses and the patient's wishes. We will discuss more later on POLST form. RECOMMENDATIONS: 1. Pain. She is currently on [place] p.r.n. and Tylenol with Codeine p.r.n. The patient became nauseated after the Tylenol with codeine. Encouraged the patient to take pain pills with food. A scheduled possible kyphoplasty is a third option in future. 2. Constipation. a. MiraLAX was scheduled daily. The patient states prune juice helps her mostly, is going to take some prune juice tonight. If no bowel movement, she will take some milk of magnesia or suppository in the morning. 3. Nausea, the patient has Zofran 4 mg every 4 hours ordered and Compazine 10 mg p.o. every 6 hours p.r.n. Encouraged to take if nauseated. We will continue to support the patient and family. Total time was 65 minutes with 55 minutes for counseling and coordination of care. PATIENT'S NAME: MICHELLE SOUSA [facility] AGE: 85 Y [address] ROOM: [place] [address] LOCATION: [facility] [place] ADMIT DATE: 07/31/2016 Consultation DISCHARGE DATE: FAMILY PHYSICIAN: Waldemar Franks MD ATTENDING PHYSICIAN: Uvaldo GERARD Thank you for allowing me to assist with this patient and family. HEATH AMADOR NP FOR MD KELY DE LOS SANTOS/jaime /[id number] d: 08/03/16924 t: 08/28/16826, CONSULTATION REPORT
--- NOTE | ~2016-07-31 | CONS ---
PATIENT'S NAME: KSENIA SOUSA [facility] AGE: 85 Y [address] ROOM: [address] [address] LOCATION: [facility] [place] ADMIT DATE: 07/31/2016 Oncology Report DISCHARGE DATE: FAMILY PHYSICIAN: Waldemar Franks MD ATTENDING PHYSICIAN: Uvaldo GERARD RADIATION THERAPY CONSULTATION DATE OF SERVICE: REFERRING PHYSICIAN: Marissa Loo MD DIAGNOSIS: Metastatic disease to multiple sites causing difficulty with what appears to be a cauda equina syndrome in the lower lumbosacral region. Dear doctor: Ms. Ksenia Sousa was seen today in routine inpatient consultation. As you recall, this is an 85-year-old white female with a previous history of both non-Hodgkin's lymphoma in 2006 status post chemotherapy as well as a history of carcinoma of the breast with bilateral mastectomy, chemotherapy, and no radiation therapy. The patient has had multiple other medical problems, has a history of multiple falls with hip fractures, had an odontoid fracture with screw in 2015, and also has other medical issues. The patient most recently started having progressive weakness in the left lower extremity. She indicated she had some numbness around the left lower extremity, describes some chest pain which was shooting starting from the back radiating to her lower left extremities, left greater than right. She denies fevers, chills, nausea, night sweats, or shortness of breath. She did have weight loss, but attributed this to a diuretic. Subsequently, the patient was seen by her primary care physician, underwent a CAT scan, which showed lesions at L4 through S1, suspicious for diskitis. CT of the chest revealed right pleural effusion and nodularity noticed. Subsequently, the patient was admitted to the hospital, workup is underway. While inhouse, the patient has undergone scans, which indicate significant disease at multiple levels of the lumbar spine to the above mentioned right pleural effusion, multiple lung nodules. It is unclear at this time whether the above areas of disease are from her breast cancer, which had been diagnosed in 2011 or the lymphoma which was diagnosed in 2006. The patient is scheduled to be seen by Orthopedic Surgery later today. ALLERGIES: THE PATIENT WITH NO KNOWN DRUG ALLERGIES. PATIENT'S NAME: KSENIA SOUSA [facility] AGE: 85 Y [address] ROOM: [address] [place] [id number] LOCATION: [facility] [place] ADMIT DATE: 07/31/2016 Oncology Report DISCHARGE DATE: FAMILY PHYSICIAN: Waldemar Franks MD ATTENDING PHYSICIAN: Uvaldo GERARD MEDICATIONS: Current medications include: 1. MiraLax. 2. Zofran. 3. Compazine. 4. Milk of magnesia. 5. Dulcolax. 6. Fleets Enema presently. 7. Succasunna. 8. Lyrica. 9. Thera-vitamins. 10. Os-Nikita plus D. 11. Vitamin C. 12. Lidocaine. 13. Heparin. 14. Lopressor. 15. Proventil. 16. Tylenol. PAST MEDICAL HISTORY: Positive for history of bilateral breast cancer, diagnosed in 2011, status post bilateral mastectomy with no radiotherapy, chemotherapy was given; history of lymphoma in 2006; falls; hypertension; paroxysmal atrial fibrillation; and significant thoracic aortic aneurysm. PAST SURGICAL HISTORY: Positive for a history of appendectomy in 1952, tonsillectomy in 1952, bilateral mastectomy in 2011, bilateral cataracts, bilateral ovary removal in 2009, and right renal artery stent in 2004. The patient most recently with odontoid screw fixation in October 2015. The patient gives a history of a right hip repair. FAMILY HISTORY: The patient's family history significant for her father having had melanoma. Brother having had renal carcinoma. Further, the family has a positive history for diabetes and strokes. SOCIAL HISTORY: The patient lives in [place]. She lives by herself. She does not have biological children, but does have foster children, who are very attentive. No history of smoking or drinking noted. REVIEW OF SYSTEMS: GENERAL: The patient denied fevers, chills, or night sweats. Indicates she PATIENT'S NAME: KSENIA SOUSA [facility] AGE: 85 Y [address] ROOM: [address] [address] LOCATION: [facility] [place] ADMIT DATE: 07/31/2016 Oncology Report DISCHARGE DATE: FAMILY PHYSICIAN: Waldemar Franks MD ATTENDING PHYSICIAN: Uvaldo GERARD has had some weight loss. HEENT: No complaints of headaches. No problems with vision. No problems with hearing. No oral cavity issues mentioned. NECK: No complaints with her neck at present. LUNGS: No complaints of shortness of breath. COR: The patient did have complaints of some chest pain, which then radiated down her back. GI: No problems passing stool. : No problems passing her water. EXTREMITIES: No complaints of problems with her extremities. NEUROLOGIC: The patient did complain of some left-sided weakness particularly in her left leg. PHYSICAL EXAMINATION: VITAL SIGNS: Included a temperature of 97.9, pulse of 80, blood pressure 168/76, PaO2 is 95% on 2 L, and weight is 55 kilos. GENERAL: An elderly, white female, lying in bed. The patient indicates that she is somewhat confused and attributes this to pain medication she is taking. She indicates her pain at this time is 3/10 in intensity in the sacral region. HEENT: Normocephalic and atraumatic. Extraocular motions are intact. Oral cavity, no masses or mycotic lesions. NECK: Neck with no masses noted. CHEST: Examination of the patient's chest reveals bilateral mastectomies. No significant masses noted in the chest bilaterally. EKG leads are in place. No axillary adenopathy is noted. ABDOMEN: Soft and nontender. EXTREMITIES: Without clubbing, cyanosis, or edema. NEUROLOGIC: The patient is alert and oriented x2 to 3. She answers questions appropriately, but does state that she is somewhat confused, which she attributes to her medications. Mini-mental exam otherwise appears to be close to normal if not normal. Muscle strengths are 5-/5 in the upper extremities, 5-/5 in the right lower extremity, and 4+/5 in the left lower extremity. The patient is able to step on the gas, pickle pumper on the gas pedal with either foot with very little difficulty. We did not attempt to walk the patient. This concluded the limited physical exam of this patient. LABORATORY DATA: The patient did undergo multiple scans. Results of an MRI done on 08/01/2016, revealed findings suspicious for extensive tumor involvement of the lumbar spine particularly at L4-L5. Also noted was disease involving much of S1 and to a lesser degree L3, L2, and L1. Disease at L4 and L5 involve the posterior elements, thickening and expanded by presumed tumor. Soft tissue extension around the bones involving the epidural space from L3-L4 into the sacral canal PATIENT'S NAME: KSENIA SOUSA [facility] AGE: 85 Y [address] ROOM: [address] [address] LOCATION: [facility] [place] ADMIT DATE: 07/31/2016 Oncology Report DISCHARGE DATE: FAMILY PHYSICIAN: Waldemar Franks MD ATTENDING PHYSICIAN: Uvaldo GERARD are noted. Spinal stenosis at L3-L4, L4-L5, and L5-S1 are noted. In the retroperitoneum, there was an ill-defined collar of soft tissue surrounding an infrarenal aorta. Radiology read this as consistent with tumor, no hydronephrosis was noted, bone lesions present within the bilateral ilium medially around the SI joints were noted. The patient did have a CT of the abdomen and pelvis done. The patient has previous pathology indicating the patient had both a B-cell lymphoma in 2006 and a IIB carcinoma of the breast left and right in 2011. At present, no pathology from the sacral area is available. ICD 10. IMPRESSION: This is an 85-year-old white female with widespread metastatic disease from either primary carcinoma of the breast or a B-cell lymphoma. The patient is to be evaluated by Orthopedics for possible surgery and to obtain pathology. PLAN: We will await Orthopedic consultation. Once pathology is available to us, we will consult with Medical Oncology in terms of the optimal way to treat this patient. The patient at present appears to have a cauda equina syndrome at the L5, S1, and S2 region. An optimal treatment plan will be arrived at and therapy will be initiated therapy. We discussed this with the patient, who understood the conversation. Indicated to her we would await pathology. At that point, we will reevaluate the patient for future therapy. We thank you for allowing us to consult on this most pleasant patient. Sincerely, SHRUTHI AGUDELO MD, PHD ARMIDA/jaime /[id number] CC: Karlos Hills MD PATIENT'S NAME: KSENIA SOUSA [facility] AGE: 85 Y [address] ROOM: [address] [address] LOCATION: [facility] [place] ADMIT DATE: 07/31/2016 Oncology Report DISCHARGE DATE: FAMILY PHYSICIAN: Waldemar Franks MD ATTENDING PHYSICIAN: Uvaldo GERARD MD Robert R Kahnk, MD George K Bascom, MD d: 08/03/16 0018 t: 08/18/16 1114, CONSULTATION REPORT
--- NOTE | ~2016-07-31 | OR ---
PATIENT'S NAME: MICHELLE SOUSA [facility] AGE: 85 Y [address] ROOM: [place] [address] LOCATION: [facility] [place] ADMIT DATE: 07/31/2016 OR/Procedure Report DISCHARGE DATE: FAMILY PHYSICIAN: Waldemar Franks MD ATTENDING PHYSICIAN: Uvaldo GERARD SURGEON: Karlos Villela MD GAS PRODUCER: DATE OF PROCEDURE: 08/03/2016 DIAGNOSIS: Destruction of lumbar 4 and lumbar 5. PROCEDURES: 1. Aspiration of remnant of the lumbar 4-5 disc. 2. Biopsy of lumbar 4. 3. Biopsy of lumbar 5. ANESTHESIA: Local and MAC. INDICATIONS: Destruction of lumbar 4 and lumbar 5, initially thought to have a diskitis, high suspicion of tumor. Does have paraspinous mass effect as well as epidural mass. No cauda equina syndrome. She has some weakness of the left hip, most likely from involvement of this iliopsoas muscle and minimal weakness of the lumbar 4 nerve root on the left. No loss of bowel or bladder control. The patient has difficulty stating if she has significant back pain or not. Certainly, if she was disabled by back pain with some fracture in lumbar 4, augmentation could be a consideration. Certainly, if it is equivocal how much back pain she has, it is best to biopsy, make a diagnosis, and then consider the best treatment. We will plan to initially mobilize her in a soft TLSO. DESCRIPTION OF PROCEDURE: Ms Sousa was taken to the operating room. No preoperative antibiotics, placed on the operating table in a prone position. Back was prepared with ChloraPrep. Fluoroscope was used to identify the remnant on the lumbar 4-5 disc. From the right side, an 18-gauge needle was advanced into the area of the disk space, largely calcified. Aspiration of bloody fluid, sent for cultures; aerobic, anaerobic, fungal, and TB. Then, the left pedicles of both lumbar 4 and lumbar 5 were identified, local anesthetic was infused subcutaneously, and about the periosteum. K-wires were driven into the pedicles. Marco A needle was advanced over the K-wire and a core of bone was taken from the lumbar 4 and also core of bone separately from lumbar 5, each was divided and sent for histology and cultures including aerobic, anaerobic, fungal, and TB cultures. Incisions were closed with 2-0 nylon. Procedure was done without complication. At the end of the procedure, I was able to move her legs with the same strength that she had preop. PATIENT'S NAME: MICHELLE SOUSA [facility] AGE: 85 Y [address] ROOM: [place] [address] LOCATION: [facility] [place] ADMIT DATE: 07/31/2016 OR/Procedure Report DISCHARGE DATE: FAMILY PHYSICIAN: Waldemar Franks MD ATTENDING PHYSICIAN: Uvaldo GERARD KARLOS VILLELA MD DPM/jaime /[id number] d: 08/04/16101 t: 08/08/16 1807, OPERATIVE SUMMARY
[~2016-07-31 17:30] MED LIST: APRESOLINE25 MG PO; ASCORBIC ACID500 MG PO; COLACE100 MG PO; LOPRESSOR25 MG PO; LUTEIN20 MG PO; MIRALAX17 GM PO; NORVASC10 MG PO; NORVASC5 MG PO; OSCAL + D500 MG PO; PEPCID20 MG PO; PLETAL (NON-FO100 MG PO; PRINIVIL (ZESTR20 MG PO; SKELAXIN800 MG PO; THERA-VITE W/ B1 TAB PO; TYLENOL325 MG PO; ULTRAM50 MG PO; VALIUM2 MG PO
[2016-07-31] MEDS ORDERED: LYRICA 50MG CAP50 MG PO (20:16)
[2016-07-31] MEDS ORDERED: TYLENOL WITH C1 EACH PO (20:18)
[2016-07-31] MEDS ORDERED: PROVENTIL OR V6.7 GM INH (20:18)
[2016-07-31 21:52] LABS: BASOPHIL % 0.2 %; EOSINOPHIL # 0.2 K/uL (0.0-0.5); EOSINOPHIL % 2.1 %; HEMATOCRIT 32.7 % (30.0-46.0); IMMATURE GRANULOCYTE # 0.1 K/uL (0.0-0.3); IMMATURE GRANULOCYTE % 0.6 %; LYMPHOCYTE # 1.1 K/uL (0.8-4.0); LYMPHOCYTE % 13.4 %; MCH 31.7 pg (27.0-34.0); MCHC 33.6 gm/dL (32.0-36.5); MCV 94.2 fl (83.0-98.0); MONOCYTE # 0.7 K/uL (0.0-1.0); MONOCYTE % 8.6 %; MPV 8.9 fl (9.4-12.4); NEUTROPHIL # (ANC) 6.2 K/uL (1.8-7.8); NEUTROPHIL % 75.1 %; NRBC % 0 /100WBC (0-0.00); PLATELET COUNT 221 K/uL (150-450); RBC 3.47 M/uL (3.00-5.00); WBC 8.2 K/uL (4.0-11.0)
[2016-07-31 22:11] LABS: ALBUMIN 3.3 gm/dL (3.5-5.0); ANION GAP 13.9 (10.0-19.0); POTASSIUM 3.9 mMol/L (3.7-5.1)
--- NOTE | 2016-07-31 22:43 | NUR ---
Arrived via personal auto from [facility]. Admitted for possible diskitis and pain. Has a history of non-hodgkins lymphoma, bilateral breast cancer/masectomy, hypertension, arotic anyeurism, R) hip fracture and cervical fracture caused by a fall in 2016. Alert and oriented x 3, lives at home by herself. She has had increasing weakness to her left leg and intermittant pain in her back and whole left leg. She fell approximately 2 weeks ago trying to pick something off of the floor. SHe is a patient of Dr. Castellanos and she is to be consulted. Her recent exams have shown 3 nodules in her R) lung with a small pleural effusion. Her son will be here tomorrow. Plan for MRI/MRA of lumbar and sacral spine to determine cause of diskitis. She uses a walker at home to ambulate and is a ultra high fall risk.
--- NOTE | 2016-08-01 05:13 | NUR ---
SIGNIFICANT EVENT: Patient is alert & oriented. Hypertensive - 179 to 187/78 to 94. Tachycardic at times, no fever, 90's on 1L. Tele on - called at 2345 to report 4 multifocal PVC's and AFib. notified - only new order is for Labetalol 10 mg IVP q4H prn for SBP above 170. Tylenol with codeine x2 - last at 0413, can have q4 hours but states this gives her little relief. 1PA walker to commode d/t weakness and pain in back, left hip and leg. Ultra high fall risk d/t fall 2 weeks ago. Lumbar/sacral spine MRI today to determine cause of discitis. Son to be here some time today. Pleasant and cooperative with cares.
--- NOTE | 2016-08-01 16:38 | NUR ---
Significant Event:Is A/O.Quite a bit of pain in Lt.leg/ankle/foot at times.Is up with 1-2 assists & walker.Has had tylenol with codeine x2 today.Had prn apresoline this AM for high B/P.Has O2 on at 2L/NC.Does not use at home.Had MRI this morning.Pleasant. Follow up:
--- NOTE | 2016-08-02 04:55 | NUR ---
Significant Event: ALERT AND ORIENTATED X3 FORGETFUL AT TIMES. PIVIOT TRANSFER 1-2 ASSIST TO COMMODE GB WALKER. HYPERTENSIVE OTHER VS WNL ON 2L OF O2 PER NC. C/O L) LEG PAIN NORCO X2 TABS GIVEN AT 2014 AND LEG WRAPPED IN WARM BLANKET. TELE HX OF A-FIB NO CALLS THIS SHIFT. READ MRI REPORT. CT SCHEDULED IN AM. PLEASANT AND COOPERATIVE WITH CARES. Follow up:
[2016-08-02 05:46] LABS: BASOPHIL % 0.3 %; EOSINOPHIL # 0.2 K/uL (0.0-0.5); EOSINOPHIL % 1.9 %; HEMATOCRIT 34.6 % (30.0-46.0); HEMOGLOBIN 11.3 g/dL (10.0-15.0); IMMATURE GRANULOCYTE % 0.3 %; LYMPHOCYTE # 0.9 K/uL (0.8-4.0); LYMPHOCYTE % 9.6 %; MCH 31.7 pg (27.0-34.0); MCHC 32.7 gm/dL (32.0-36.5); MCV 97.2 fl (83.0-98.0); MONOCYTE # 0.8 K/uL (0.0-1.0); MONOCYTE % 8.8 %; MPV 9.1 fl (9.4-12.4); NEUTROPHIL # (ANC) 7.1 K/uL (1.8-7.8); NEUTROPHIL % 79.1 %; NRBC % 0 /100WBC (0-0.00); PLATELET COUNT 225 K/uL (150-450); RBC 3.56 M/uL (3.00-5.00); RDW-CV 15.1 % (11.9-14.6)
[2016-08-02 06:15] LABS: ALBUMIN 3.2 gm/dL (3.5-5.0); ALK PHOS 92 IU/L (33-138); ALT 28 IU/L (12-78); ANION GAP 13.9 (10.0-19.0); AST 35 IU/L (10-40); BLOOD UREA NITROGEN 15 mg/dL (6-24); CALCIUM 9.9 mg/dL (8.5-10.5); CHLORIDE 103 mMol/L (96-110); CO2 25 mMol/L (22-32); CREATININE 0.7 mg/dL (0.5-1.1); ESTIMATED GFR (MDRD EQUATION) > 60; POTASSIUM 3.9 mMol/L (3.7-5.1); SODIUM 138 mMol/L (135-145); TOTAL BILIRUBIN 0.5 mg/dL (0.0-1.5); TOTAL PROTEIN 6.8 g/dL (6.0-8.4)
--- NOTE | 2016-08-02 16:52 | NUR ---
Significant Event: Patient is alert and oriented x3, can be forgetful. Patient states she feels "groggy" this afternoon. Thinks it is from the pain pills possibly. Relief noted from the pain pills. Did have one round of emesis this afternoon- 200ml. Refused compazine and zofran, but orders are there for it. Daily weight. Dr. Bustos and Dr. Hills consulted. L)FA IV infiltrated and IV started into the right wrist, SL. Tele on, no calls. Refused miralax, states she wants to try another prune juice tonight. Up with 1-2pa. Very tired today and worn out. Turning side to side every 2 hours. Takes pills in yogurt. Voiding okay. VSS and on 1.5 liter of O2. Cooperative with cares. Good and equal strength in all extremities.
--- NOTE | 2016-08-03 03:26 | NUR ---
SIGNIFICANT EVENT: Patient alert & oriented. BP: 135 to 139 over 51 to 56, P: 61 to 69, Sats: 92 on 1.5 and 95 on 2, afebrile. R) wrist IV is SL, flushes well but no BR. Regular diet but only had liquids for dinner d/t nausea/vomiting during prior shift. 1 to 2 PA to Bedside commode, stand and pivot with gaitbelt. XL BM this shift, 450 uop with 1 unmeasured void. 1200 PO fluids in. Surgeon in to consult - CT of back today, gabapentin added for L) leg pain/burning. Tylenol 3 given x2 - last at 0153, with some relief. Warm blanket to L) leg seems to help some also. Pleasant and cooperative with cares.
--- NOTE | 2016-08-03 15:00 | NUR ---
SPOKE TO PATIENT REGJEB AMOS AND OUR ROLE. PATIENT LIVES IN OWN HOME ALONE SHE HAS A NEPHEW THAT LIVES IN HER DRIVEWAY IN A [place] AND HELPS HER PRN. SHE ALSO HAS FRIENDS THAT HELP HER NEEDED. SHE HAS HANDICAP HOME WITH HIGH TOIOLET, AND FRONT WHEELED WALKER. PATIENT DOES NOT ANTICIPATE ANY DISCHARGE NEEDS AT THIS TIME. CM WILL CONT TO FOLLOW NEEDED.
--- NOTE | 2016-08-03 15:00 | NUR ---
SPOKE TO PATIENT REGARDING CM AND OUR ROLE. PATIENT LIVES IN OWN HOME ALONE, SHE TELLS ME THAT SHE HAS A SON THAT LIVES IN [place] AND TOLD HER THAT SHE CAN COME STAY WITH HIM AND HIS SPOUSE IF SHE NEEDS TO ONCE READY FOR DISCHARGE. MICHELLE TELLS ME SHE IS UNSURE WHAT SHE WILL DO. IF SHE NEEDS TO GO TO SNF SHE WOULD LIKE TO BE CLOSER TO HOME AT [facility]. WILL CONT TO FOLLOW AND HELP WITH DISCHARGE NEEDED.
--- NOTE | 2016-08-03 16:33 | NUR ---
Significant Event: Patient is alert and oriented x3, however is forgetful and confused at times. Tylenol #3 given at last 1427. Relief noted. Up with 1-2PA to BSC and chair. Weak. TLSO brace ordered and needs to be on when up. Had thoracentesis today at the bedside- got a little more than 1 liter off. X-ray and CT completed early this am. Patient also had prudence needle biopsy of L4-L5. Aspirate L4-5 disc space. MAC sedation. Refused some of her own medications this afternoon after the procedure. Voiding adequately. Cooperative with cares.
--- NOTE | 2016-08-03 23:34 | NUR ---
Significant Event:AAOX3. REGULAR DIET. 1PA WITH ACTIVITIES. ON TELE; NO CALLS. TO HAVE TLSO BRACE WHEN UP, PT DOES NOT HAVE IT YET. ON 2L O2/NC TO KEEP SATS >92%. KPAD TO BLE HELP WITH PAIN CONTROL. TYLENOL 3 ADMINISTERED X1 AT 1930. WOULD LIKE TO TRY NORCO NEXT TIME FOR PAIN CONTROL. PT PLESANT AND COOPERATIVE WITH CARES. DENIES NAUSEA. Follow up:
--- NOTE | 2016-08-04 00:53 | NUR ---
CARE OF PT TRANSFERRED TO SEBASTIAN DUMONT AT 001
--- NOTE | 2016-08-04 04:03 | NUR ---
Significant Event: A&OX3. Up to bedside commode 1 assist GB. Has pain that radiates from back into L) leg. [place] given with zofran for pain. On 2L of O2 sats mid 90s. On tele box. Regular diet. Follow up: TLSO BRACE TO BE ON WHEN UP NOT CURRENTLY HERE
[2016-08-04 06:18] LABS: ANION GAP 10.4 (10.0-19.0); BLOOD UREA NITROGEN 17 mg/dL (6-24); CALCIUM 9.3 mg/dL (8.5-10.5); CHLORIDE 102 mMol/L (96-110); CO2 29 mMol/L (22-32); CREATININE 0.8 mg/dL (0.5-1.1); ESTIMATED GFR (MDRD EQUATION) > 60; MAGNESIUM 1.5 mg/dL (1.3-2.6); POTASSIUM 4.4 mMol/L (3.7-5.1); SODIUM 137 mMol/L (135-145)
--- NOTE | 2016-08-04 14:00 | NUR ---
RECEIV[facility] CALL FROM [facility]. SHE REPORTS THAT PATIENT WILL BE GETTING RADIATION STARTING ON SUN. I SPOKE TO MICHELLE AND UPDATED HER THAT SHE WILL BE GETTING RADIATION STARTING ON SUN. MICHELLE FEELS THAT SHE NEEDS TO GO TO SNF AND IS OK WITH HAVING ME CHECK AT [facility]. I MADE REFERRAL TO [facility] BUT HAD TO LEAVE A MESSAGE ON [facility] [employer]. WILL CONT TO FOLLOW NEEDED.
--- NOTE | 2016-08-04 15:30 | NUR ---
Significant event: Patient is alert and oriented. VSS. On 1 liter of O2 per NC. Had 1 norco at 0920 for back pain. Did have shower today. IV is saline locked. One assist with transfers. Has Soft TLSO brace in place and it needs to be on while patient is up. Is on tele, no calls. Regular diet. Has bandaid from [facility] yesterday, C/D/I. Bandage to lower back from surgery was saturated and replaced with gauze and tape, sutures intact. Denies nausea today. Cooperative with cares.
--- NOTE | 2016-08-05 03:14 | NUR ---
Patient alert and oriented. Transfers 1A GB/walker. Uses the bedside commode. Wears soft tlso brace when up. On tele with no calls. Took two norco at bedtime for pain the legs. Is on 1L of O2 with goal to wean off. Regular diet. Gauze and tape to back covering 2 stiches, dressing is c/d/i. Demonstrates appropriate use of call light. Pleasant and cooperative with cares.
[2016-08-05 05:22] LABS: BASOPHIL % 0.3 %; EOSINOPHIL # 0.1 K/uL (0.0-0.5); EOSINOPHIL % 0.9 %; HEMATOCRIT 30.6 % (30.0-46.0); HEMOGLOBIN 9.9 g/dL (10.0-15.0); IMMATURE GRANULOCYTE # 0.1 K/uL (0.0-0.3); IMMATURE GRANULOCYTE % 0.7 %; LYMPHOCYTE % 13.8 %; MCH 31.8 pg (27.0-34.0); MCHC 32.4 gm/dL (32.0-36.5); MCV 98.4 fl (83.0-98.0); MONOCYTE # 0.7 K/uL (0.0-1.0); MONOCYTE % 10.1 %; MPV 9.2 fl (9.4-12.4); NEUTROPHIL # (ANC) 5.2 K/uL (1.8-7.8); NEUTROPHIL % 74.2 %; NRBC % 0 /100WBC (0-0.00); PLATELET COUNT 210 K/uL (150-450); RBC 3.11 M/uL (3.00-5.00); RDW-CV 15.3 % (11.9-14.6)
[2016-08-05 05:34] LABS: ANION GAP 11.7 (10.0-19.0); CALCIUM 9.4 mg/dL (8.5-10.5); CREATININE 1.1 mg/dL (0.5-1.1); POTASSIUM 4.7 mMol/L (3.7-5.1)
--- NOTE | 2016-08-05 09:11 | NUR ---
A-NUTRITION F/U 08/03-THOROCENTESIS. TSLO BRACE WHEN UP. (+)BM. WILL START RADIATION ON SUNDAY LABS: NA 136, K+ 4.7, GLU 109, BUN 25, INSPECTING MACHINE ADJUSTER 1.1 NO NEW MEDS DIET RX: REGULAR W/ENSURE ENLIVE BID. PO INTAKE IS FAIR. VISITED W/PT RE: ENSURE ENLIVE. PT LIKES THE ENSURE, WOULD PREFER CHOCOLATE OR VANILLA OVER THE STRAWBERRY FLAVOR. STATES APPETITE IS GOOD. EST NUTR NEEDS: [id number] KCALS AND 55-66 GM PROTEIN D-AT NUTRITION RISK W/UNINTENDED WT LOSS SUPERVISOR SKI PRODUCTION R/T DIURETICS?, CATABOLIC DZ PROCESS AEB 13.5% WT LOSS X 8 MOS, LUNG NODULE, DIURETICS I-CHANGE STRAWBERRY ENSURE ENLIVE TO CHOCOLATE; CONTINUE ENSURE BID AT B/D M/E-GOAL: PO INTAKE >/=50% BY NEXT F/U 1)F/U PO INTAKE, SUPPLEMENT, WT, AND POC IN 3-5 DAYS 2)ASSIST AT NEEDED
--- NOTE | 2016-08-05 14:54 | NUR ---
Significant Event: Pt c/o intermittent bilaterial lower legs hurting, some relief with Tylenol with codeine. Up in recliner x1. Amb to br, very weak 1-2 assist. Brace on when up, refused to keep it on while in recliner. PT/OT consult. xray spine done. Poor appetite. Had a large emesis after lunch, ate only bites. Tele on, no calls. Dressing to lower back d/i. Removed bandaids to back where thoracenthesis was done. On room air. Follow up:
--- NOTE | 2016-08-06 02:14 | NUR ---
SIGNIFICANT EVENT: Patient alert and oriented. VSS on 2L, then titrated down to 1.5 - remains 94% on 1.5 at second assess. [place] x1 at 2100 - asleep on pain reassess. Rested well throughout shift. Important to have back brace on when out of bed to BR or chair. Did use bedside commode this shift d/t lasix given just before bed. PET Scan scheduled for Sunday a.m. Regular diet but to be NPO at [facility] [place]. Plans to go to [facility] on Sunday after PET scan. Pleasant and cooperative with cares.
[2016-08-06 05:36] LABS: BASOPHIL % 0.3 %; EOSINOPHIL # 0.3 K/uL (0.0-0.5); EOSINOPHIL % 4.1 %; HEMATOCRIT 29.4 % (30.0-46.0); HEMOGLOBIN 9.5 g/dL (10.0-15.0); IMMATURE GRANULOCYTE % 0.3 %; LYMPHOCYTE # 1.3 K/uL (0.8-4.0); MCH 31.5 pg (27.0-34.0); MCHC 32.3 gm/dL (32.0-36.5); MCV 97.4 fl (83.0-98.0); MONOCYTE # 0.7 K/uL (0.0-1.0); MPV 9.4 fl (9.4-12.4); NEUTROPHIL # (ANC) 4.8 K/uL (1.8-7.8); NEUTROPHIL % 67.3 %; NRBC % 0 /100WBC (0-0.00); PLATELET COUNT 220 K/uL (150-450); RBC 3.02 M/uL (3.00-5.00); RDW-CV 14.9 % (11.9-14.6); WBC 7.1 K/uL (4.0-11.0)
[2016-08-06 05:57] LABS: BLOOD UREA NITROGEN 23 mg/dL (6-24); CALCIUM 9.7 mg/dL (8.5-10.5); CHLORIDE 98 mMol/L (96-110); CO2 26 mMol/L (22-32); CREATININE 0.8 mg/dL (0.5-1.1); ESTIMATED GFR (MDRD EQUATION) > 60; SODIUM 134 mMol/L (135-145)
--- NOTE | 2016-08-06 16:05 | NUR ---
Significant Event: Pt c/o intermittent lower back pain, good relief with pain meds. Ate breakfast but refused lunch. Vomitted mod amt x2 this shift. Good bowel sounds but not passing gas. MD aware. Unable to give her MOM or prune juice d/t pet scan diet. Will try and get a dulcolox ordered. xray of spine done. To have an Echo. Up to commode with 1 assist. c/o being sleepy today, easily arouses. Has been on 1 liter O2. Was removed for xray and was not placed back on. @ 1400 O2 sat was 59%. Had to put pt on 3 liters O2 for approx. 5 min to get sats back up. Currently on 1 liter O2. aware of O2 sat issues, did talk about overnight trend ox but does not want to do it at this time. NPO after midnight for PET scan in am. Back brace on when up. Refused to get up in recliner or ambulate today. Dressing to lower back d/i. Follow up:
--- NOTE | 2016-08-07 04:33 | NUR ---
SIGNIFICANT EVENT: Patient alert & oriented. 1PA, stand and pivot to BSC. Use walker if ambulating. Weak and sleepy this shift. Tylenol 3 x1, last at 0003 with noted relief. PET scan diet on 08/06/09, NPO since MN - PET scan today. Possible DC to [facility] today? Recent L5 tumor biopsy - 4x4 with tape to back. Only other procedure this visit is a thoracentesis - no kyphoplasty. TLSO on when up to BSC or in chair - hangar came today and states that brace is adjusted to patient, if the from portion of brace is up against patient's throat then the brace is not positioned low enough. PIV to R) FA is SL, no BR. Strict I/O and daily weight. Cooperative with cares.
[2016-08-07 05:36] LABS: BASOPHIL % 0.3 %; EOSINOPHIL # 0.3 K/uL (0.0-0.5); EOSINOPHIL % 4.6 %; HEMATOCRIT 30.4 % (30.0-46.0); HEMOGLOBIN 9.9 g/dL (10.0-15.0); IMMATURE GRANULOCYTE % 0.3 %; LYMPHOCYTE # 1.1 K/uL (0.8-4.0); MCH 31.7 pg (27.0-34.0); MCHC 32.6 gm/dL (32.0-36.5); MCV 97.4 fl (83.0-98.0); MONOCYTE # 0.5 K/uL (0.0-1.0); MONOCYTE % 8.4 %; MPV 9.2 fl (9.4-12.4); NEUTROPHIL # (ANC) 3.9 K/uL (1.8-7.8); NEUTROPHIL % 67.4 %; NRBC % 0 /100WBC (0-0.00); PLATELET COUNT 238 K/uL (150-450); RBC 3.12 M/uL (3.00-5.00); RDW-CV 14.8 % (11.9-14.6); WBC 5.9 K/uL (4.0-11.0)
[2016-08-07 05:53] LABS: ALBUMIN 2.8 gm/dL (3.5-5.0); ANION GAP 16.4 (10.0-19.0); CALCIUM 10.4 mg/dL (8.5-10.5); CREATININE 0.9 mg/dL (0.5-1.1); POTASSIUM 4.4 mMol/L (3.7-5.1); TOTAL BILIRUBIN 0.4 mg/dL (0.0-1.5); TOTAL PROTEIN 5.9 g/dL (6.0-8.4)
--- NOTE | 2016-08-07 12:49 | NUR ---
I STILL HAVE NOT HEARD BACK FROM OLIVER ARNOLD AT [facility]. I NOTIFIED OLIVER AGAIN SHE REPORTS THAT THEY HAVE A FEMALE BED. SHE WOULD LIKE FOR ME TO FAX INFO TO HER SHE WILL REVIEW IT AND GET BACK TO ME.
--- NOTE | 2016-08-07 17:10 | NUR ---
RECEIVED CALL FROM OLIVER AT [facility] SHE INFORMS ME THAT THEY WILL NOT BE ABLE TO ACCEPT PATIENT AT THIS TIME. I SPOKE TO MICHELLE AND UPDATED HER. WILL CONT TO LOOK FOR PLACMENT IN OTHER SNF IN [place]
--- NOTE | 2016-08-07 17:29 | NUR ---
Significant Event:Is A/O.Had PET scan today & went to cancer center today.Has been up with walker & 1 assist.Lt.leg/hip really hurts at times.Had 2 norco at 1550.Has tele on.Has TLSO brace.Had lg.stool today.Pleasant.Voiding ok. Follow up:
--- NOTE | 2016-08-08 03:56 | NUR ---
SIGNIFICANT EVENT: Patient alert & oriented, slept well through the night. BP: 103 to 154/44 to 54, other VSS on 1.5L. Denies pain this shift. PIV to R) arm is SL. This visit hx of thoracentesis and biopsy of tumors on L5 spine - dressing to the biopsy site C/D/I. Regular diet. Pleasant and cooperative with cares.
--- NOTE | 2016-08-08 10:01 | NUR ---
SPOKE TO PAM AT [facility] THEY DO NOT HAVE ANY REMALE BEDS AT THIS TIME. SPOKE TO TOMASA AT [facility] SHE WOULD LIKE FOR ME TO FAX INFO TO HER AND SHE WILL REVIEW IT WITH THE TEAM. SHE VOICES CONCERNS ABOUT PATIENT GETTING THE RADIATION AND HOW MUCH IS WILL COST WHILE PATIENT IS BEING IN THERE UNDER MEDICARE SKILLED. I WILL FAX INFO TO HER SHE WILL REVIEW IT AND GET BACK TO ME.
--- NOTE | 2016-08-08 14:41 | NUR ---
A-NUTRITION F/U 08/07 PET SCAN. TSLO BRACE WHEN SHE IS UP. (+)BM PT HAVING SOME ISSUES W/VOMITTING. SHE REPORTS THAT SHE THINKS IT HAPPENED TODAY D/T WHERE HER TSLO BRACE PUSHES A SPOT ON HER THROAT. SHE REPORTS THAT HER APPETITE IS GOOD. SHE WAS NOT FEELING WELL OVER THE WEEKEND, BUT REPORTS THAT SHE IS FEELING BETTER. SHE LIKES THE ENSURE AND WOULD LIKE TO CONTINUE RECEIVING IT. LABS: NA 135, K+ 4.4, GLU 83, BUN 25, SPEECH WRITER 0.9,A LB 2.8 MEDS: LYRICA, ARIMIDEX, ZOMETA/RECLAST DIET RX: REGULAR W/ENSURE ENLIVE BID. PO INTAKE OF MEALS REFUSAL-50%. ENCOURAGED PT TO INCREASE HER PO INTAKE SHE CAN. EST NUTR NEEDS: [id number] KCALS AND 55-66 GM PROTEIN D-AT NUTRITION RISK W/UNINTENDED WT LOSS DIE EQUIPMENT OPERATOR R/T DIURETICS ?, CATABOLIC DZ PROCESS AEB 13.5% WT LOSS X 8 MOS, LUNG NODULE, AND DIURETICS. I-CONTINUE W/ENSURE ENLIVE BID M/E-GOAL: PO INTAKE >/=50% BY NEXT F/U 1)F/U PO INTAKE, SUPPLEMENT, AND POC IN 3-5 DAYS 2)ASSIST NEEDED
--- NOTE | 2016-08-08 16:00 | NUR ---
RECEIVED CALL FROM TOMASA WITH [facility] SHE INFORMS ME THAT THEY WILL NOT BE ABLE TO ACCEPT PATIENT DUE TO THE RADIATION AND THEY ALSO ARE WORRIED THAT PATIENT MAY GET CHEMO AND THEY WOULD HAVE TO PAY FO IT AND THEIR ELECTRICAL ACCESSORIES ASSEMBLER IS TELLING THEM THAT THEY ARE NOT ABLE TO ACCEPT PATIENT. I UPDATED MICHELLE THAT THERE IS NOT ANY SNF IN [place] THAT WILL ACCEPT HER. I ATTEMPTED TO CONTACT HER SON BUT WAS UNABLE TO GET AHOLD OF HIM.
--- NOTE | 2016-08-08 18:54 | NUR ---
Significant Event:Is A/O but forgetful.Has O2 on at .5 to 1L/NC.Trying to wean off.Abd.marked for radiation.Has been up with 1 and walker.Tele on.Had a stool yesterday.Some pain in legs,Lt.more than Rt.and goes from hip & lower back clear down her leg.Uses bedside commode.Has tele on.Was alittle lightheaded & drowsy this afternoon & was seeing different things like on her table or bed that wasn't there and she knew it & told me.Has occ.runs of V-tach & aware of this.Pleasant. Follow up:
--- NOTE | 2016-08-09 04:39 | NUR ---
ADMIT 4/3 DISCITIS, BX SITE TO BACK MARKED, NEUROS WNL, TLSO WHEN UP, UP TO BSC WITH 1 ASSIST/FWW/GAITBELT, TELE IN PLACE, RIGHT WRIST PIV SALINE LOCKED, [place] NO AIDES IN ROOM, UPPER DENTURE IN BATHROOM SOAKING, VS WNL BUT DESATS W/O O2 AND PLACED BACK ON @1L PER NC TO MAINTAIN @92%, SOB WITH EXTERION, POSSIBLE PLACEMENT OF TUBE INTO LUNG FOR DRAINAGE, TO START RADIATION ONCOLOGY TODAY DUE TO HX OF BREAST CANCER THAT HAS NOW METS, TOLERATED A REGULAR DIET BUT POOR INTAKE AND NEEDS ENCOURAGEMENT WITH MEALS, PAIN CONTROLLED WITH NUCYNTA LD@0430 AND KPAD TO BLE FOR COMFORT. UNSURE OF DC PLAN AT THIS TIME.
[2016-08-09 06:25] LABS: BASOPHIL % 0.5 %; EOSINOPHIL # 0.3 K/uL (0.0-0.5); EOSINOPHIL % 5.7 %; HEMATOCRIT 31.2 % (30.0-46.0); IMMATURE GRANULOCYTE # 0.1 K/uL (0.0-0.3); IMMATURE GRANULOCYTE % 0.9 %; LYMPHOCYTE # 0.7 K/uL (0.8-4.0); LYMPHOCYTE % 12.3 %; MCH 31.7 pg (27.0-34.0); MCHC 32.1 gm/dL (32.0-36.5); MONOCYTE # 0.7 K/uL (0.0-1.0); MPV 9.3 fl (9.4-12.4); NEUTROPHIL # (ANC) 3.9 K/uL (1.8-7.8); NEUTROPHIL % 68.6 %; NRBC % 0 /100WBC (0-0.00); PLATELET COUNT 276 K/uL (150-450); RBC 3.15 M/uL (3.00-5.00); RDW-CV 14.9 % (11.9-14.6); WBC 5.8 K/uL (4.0-11.0)
[2016-08-09 06:39] LABS: ANION GAP 9.3 (10.0-19.0); BLOOD UREA NITROGEN 20 mg/dL (6-24); CALCIUM 9.9 mg/dL (8.5-10.5); CHLORIDE 97 mMol/L (96-110); CO2 34 mMol/L (22-32); CREATININE 0.7 mg/dL (0.5-1.1); ESTIMATED GFR (MDRD EQUATION) > 60; SODIUM 136 mMol/L (135-145)
[2016-08-09 06:40] LABS: POTASSIUM 4.3 mMol/L (3.7-5.1)
--- NOTE | 2016-08-09 09:00 | NUR ---
RECEIVED CALL FROM PATIENT'S SON KAILYN I UPDATED HIM THAT AT THIS TIME A SNF WILL NOT ACCEPT MICHELLE DUE TO HER GETTING RADIATION AND THEY ALSO ARE WORRIED THAT SHE MAY HAVE CHEMO AND THAT FEEL IT IS TOO EXPENSIVE TO ACCEPT HER. WE TALKED ABOUT THE OPTION OF HER GOING TO AN [place] ONCE SHE IS STRONG ENOUGH AND KAILYN ALSO MENTIONS THAT MICHELLE COULD STAY WITH HIM AND HIS SPOUSE. BUT HE FEELS THAT MICHELLE NEEDS MORE HELP THAN THEY AND PROVIDE AT THIS TIME. HE WOULD LIKE FOR ME TO SPEAK TO HER MEDICAL POA ALEXA REGARDING DISCHARGE PLANS AND GOALS. SHORTLY AFTER I SPOKE TO KAILYN I RECEIVED A CALL FROM ALEXA AND I UPDATED HIM ON THE DISCHARGE PLANS AND GOALS. HE IS GOING TO MEET WITH ME TODAY AT AROUND 1600 AND WE WILL TALK ABOUT DISCHARGE PLANS AND GOALS. WILL CONT TO FOLLOW NEEDED.
[2016-08-09 12:17] LABS: INR - (THERAPEUTIC) 1.05 (0.92-1.07)
--- NOTE | 2016-08-09 16:00 | NUR ---
MEET WITH PATIENT AND HER POA ALEXA AT THE BEDSIDEL EXPLAINED TO ALEXA THAT AT THIS TIME I CAN NOT FIND A SNF THAT WILL ACCEPT MICHELLE WHILE SHE IS GETTING CHEMO. WE TALKED ABOUT OTHER OPTIONS SUCH [facility], STAING WITH FAMILY AND GETTING [facility] OR PRIVATE CARE GIVERS. PATIENT TELLS ME SHE THINKS AT THIS TIME SHE NEEDS MORE HELP THAN THE [facility] WILL GIVE HER AND IS HOPING SHE CAN GET STRONGER AFTER A FEW RADIATION TREATMENTS THAT WILL BE STARTIG TOMORROW AND SHE WILL BET GETTING 10 ROUNDS. SHE TELLS ME THAT SHE IS WILLING TO GO TO [facility] ONCE SHE IS STRONG ENOUGH AND SHE IS GOING TO WORK TOWARDS THIS. WILL CONT TO FOLLOW NEEDED.
--- NOTE | 2016-08-09 20:20 | NUR ---
Significant event: Pt. has TLSO brace when up. 1PA with transfers. Walker and gaitbelt. Tele on, no calls. R)wrist SL, would not flush. Removed and L)FA IV placed downstairs. PICC nurse attempted midline but could not access. PICC nurse recommends a tunneled cath or powerline if patient will be here for prolonged period. Is high risk for PICC due to double mastectomy. Very hard stick. Abdomen marked for radiation, will go to cancer center tomorrow at 1400. C/o leg pain 8/10, tyl #3 given and relief noted. Patient was NPO at 0800 for pleurex drain placement. 540 out in surgery, 100 out of chest tube for remainder of shift. Zoledonic acid not given due to no IV access. Pt. vomited after AM pills. Refused PRN meds for nausea. Pleurex drain to 20 suction. Dressing is CDI. Puncture site to R)side also CDI. A&Ox3, VSS on 1L 02. Patient desats significantly anytime attempt to titrate was made (low 80's). Last Tyl #3 was given at 1501.
[2016-08-10 04:59] LABS: BASOPHIL % 0.2 %; HEMATOCRIT 30.9 % (30.0-46.0); IMMATURE GRANULOCYTE % 0.6 %; LYMPHOCYTE # 0.6 K/uL (0.8-4.0); LYMPHOCYTE % 9.8 %; MCH 31.7 pg (27.0-34.0); MCHC 32.4 gm/dL (32.0-36.5); MCV 98.1 fl (83.0-98.0); MONOCYTE # 0.5 K/uL (0.0-1.0); MONOCYTE % 7.3 %; MPV 9.2 fl (9.4-12.4); NEUTROPHIL # (ANC) 5.2 K/uL (1.8-7.8); NEUTROPHIL % 82.1 %; NRBC % 0 /100WBC (0-0.00); PLATELET COUNT 291 K/uL (150-450); RBC 3.15 M/uL (3.00-5.00); RDW-CV 14.9 % (11.9-14.6); WBC 6.3 K/uL (4.0-11.0)
[2016-08-10 05:14] LABS: ALBUMIN 2.8 gm/dL (3.5-5.0); ANION GAP 10.1 (10.0-19.0); CALCIUM 9.7 mg/dL (8.5-10.5); CREATININE 0.9 mg/dL (0.5-1.1); PHOSPHORUS 2.9 mg/dL (2.5-4.9); POTASSIUM 4.1 mMol/L (3.7-5.1)
--- NOTE | 2016-08-10 07:28 | NUR ---
Significant Event: Pt alert and oriented. Post op vitals WNL, pt remains on 1 liter 02, did not attempt to wean in the night. IV saline locked to left anterior forearm, with good blood return. Chest tube had 70 mls out and UOP sufficient. Plan to have radiation today. Follow up:
--- NOTE | 2016-08-10 19:05 | NUR ---
Significant Event: PT AO. VSS ON RA, AFEBRILE. IV SALINE LOCK TO L FA. TELEMETRY ON WITH NO CALLS. TLSO BRACE ON WHEN UP. AMBULATES WTIH 1-2PA, GAITBELT AND WALKER. HAZARDOUS DRUG PRECAUTIONS. HAD RADIATION THIS AFTERNOON. PT IS DAILY WT. REFUSED MIRALAX THIS AM, ORDERED PRUNE JUICE WITH ALL MEALS INSTEAD. CHEST TUBE TO R) INTACT, 125ML OUTPUT. DRESSING INTACT. Follow up: [facility], CONTINUE TO MONITOR
--- NOTE | 2016-08-11 04:42 | NUR ---
SIGNIFICANT EVENT: Patient alert, states feeling very drowsy and kind of 'out of it'. Reminded patient she's had alot done since she's been here in addition to her condition and new meds. Hazardous drug precautions d/t radiation therapy yesterday (1 of 10 doses) and PO Arimidex tablet for cancer. Hypotensive - 99 to 107 over 40 to 50 (HS BP meds held), did start on 1L at 0040, other VSS . Tele on with 1 call regarding 5 beats of VTach. MD notified, no new orders. Regular diet. 1 to 2PA walker. Strict I/O, Daily Weight. PIV to L) anterior FA is SL. pleasant and cooperative with cares.
--- NOTE | 2016-08-11 10:00 | NUR ---
[id number] Supervised [facility] Chief Technician.
[2016-08-11 10:53] LABS: ANION GAP 11.4 (10.0-19.0); CALCIUM 9.6 mg/dL (8.5-10.5); MAGNESIUM 1.6 mg/dL (1.8-2.6); POTASSIUM 4.4 mMol/L (3.7-5.1)
--- NOTE | 2016-08-11 17:55 | NUR ---
Significant Event: PT AO. FORGETFUL. BPs WERE HYPOTENSIVE THIS AM 70s/30s. 5% ABLUMIN 500ML GAVE, LAST BP WAS 107/81. HRs WERE RUNNING TACHY, TELEMETRY ON- ONLY CALL ABOUT HR. NOTIFIED. GAVE METOPOROL. CT TO R SIDE, 500ML NOTED. CAN WAS NOT MARKED FROM HEAD IRRIGATOR- LAST BURT WAS MINE FROM 08/10. PT/OT WORKING WITH. AMBULATES WITH 1-2PA GAITBELT AND WALKER. TO WEAR SOFT BRACE WHEN UP. PRN NUCYNTA X2, LAST AT 1511. HAD RADIATION TODAY- DAY 06/09. IN HAZARDOUS DRUG PRECAUTIONS FOR ARIMIDEX. SL TO L FA. GAVE MILK OF MAG WITH NO RESULTS. Follow up: MONITOR BPs, SUPPOSITORY?
--- NOTE | 2016-08-12 05:03 | NUR ---
Significant Event: Patient is A&O x 3. VSS on room air. SBP 120s-130s. Required 2L O2 overnight. Has a chest tube to the right, 150ml out. Patient is receiving radiation. Taking toxic drug. IV to L) anterior forearm SL. Patient is up with 1-2 assist, pivot to commode. Tele on with no calls. Complaints of pain, Nucenta med given at 0150. Follow up: Continue to monitor cardiac. Continue per plan of care.
[2016-08-12 06:03] LABS: BASOPHIL % 0.3 %; EOSINOPHIL # 0.3 K/uL (0.0-0.5); EOSINOPHIL % 4.8 %; HEMATOCRIT 29.4 % (30.0-46.0); HEMOGLOBIN 9.4 g/dL (10.0-15.0); IMMATURE GRANULOCYTE # 0.1 K/uL (0.0-0.3); IMMATURE GRANULOCYTE % 0.9 %; LYMPHOCYTE # 0.7 K/uL (0.8-4.0); LYMPHOCYTE % 10.8 %; MCH 31.8 pg (27.0-34.0); MCV 99.3 fl (83.0-98.0); MONOCYTE # 0.8 K/uL (0.0-1.0); MONOCYTE % 12.4 %; MPV 9.3 fl (9.4-12.4); NEUTROPHIL # (ANC) 4.7 K/uL (1.8-7.8); NEUTROPHIL % 70.8 %; NRBC % 0 /100WBC (0-0.00); PLATELET COUNT 298 K/uL (150-450); RBC 2.96 M/uL (3.00-5.00); RDW-CV 15.3 % (11.9-14.6); WBC 6.7 K/uL (4.0-11.0)
[2016-08-12 06:16] LABS: ANION GAP 9.9 (10.0-19.0); BLOOD UREA NITROGEN 26 mg/dL (6-24); CHLORIDE 94 mMol/L (96-110); CO2 33 mMol/L (22-32); CREATININE 0.8 mg/dL (0.5-1.1); ESTIMATED GFR (MDRD EQUATION) > 60; POTASSIUM 4.9 mMol/L (3.7-5.1); SODIUM 132 mMol/L (135-145)
--- NOTE | 2016-08-12 19:14 | NUR ---
Significant Event: PT AOX3 ON FIRST ASSESSMENT. HAS BEEN VERY TIRED AND SLEEPY SHIFT WENT ON, STARTED TO SAY THINGS THAT WERE NOT APPROPRIATE FOR THE QUESTION THAT WAS ASKED. STATED "IM JUST SO TIRED". CHECKED VITALS WHEN PT FIRST STARTED APPEARING LETHARGIC, O2 WAS IN THE 70s ON RA, STARTED ON 6L UNTIL SATS CAME UP, CURRENTLY ON 2L @ 96%. PT STILL VERY SLEEPY. CHEST TUBE TO R WITH 350ML OUT, DRESSING INTACT. TELEMETRY ON WITH NO CALLS. VSS. UP WITH 1PA, BSC. TO WEAR TLSO BRACE WHEN UP. PT IS DAILY WT. WILL HAVE RADIATION ON SUNDAY (DAY 07/07). PT REPORTED TINGLING TO R HAND. MD IS AWARE OF PT CONDITION. Follow up: CONTINUE TO MONITOR
--- NOTE | 2016-08-13 04:43 | NUR ---
Significant Event: Patient is A&O x 3 but forgetful at times. Was on 2L O2 then RT decreased to 1L around 0100, SATS at 94%. Has a chest tube to R) lateral side, 200ml out, canister changed. IV to L) anterior forearm SL. Patient up with 1-2 assist. Uses commode. Had a large BM and small BM. C/o of pain to lower bilat legs, Nucynta last at 0340. C/o of numbness to right arm. Tele on with no calls. Patient is taking a cytotoxic drug. Rested well throughout the night. Follow up: Continue per plan of care.
[2016-08-13 06:37] LABS: BASOPHIL % 0.3 %; EOSINOPHIL # 0.2 K/uL (0.0-0.5); EOSINOPHIL % 3.2 %; HEMOGLOBIN 9.6 g/dL (10.0-15.0); IMMATURE GRANULOCYTE # 0.1 K/uL (0.0-0.3); IMMATURE GRANULOCYTE % 0.8 %; LYMPHOCYTE # 0.6 K/uL (0.8-4.0); LYMPHOCYTE % 8.9 %; MCH 31.8 pg (27.0-34.0); MCV 99.3 fl (83.0-98.0); MONOCYTE # 0.5 K/uL (0.0-1.0); MONOCYTE % 7.7 %; MPV 9.3 fl (9.4-12.4); NEUTROPHIL # (ANC) 5.1 K/uL (1.8-7.8); NEUTROPHIL % 79.1 %; NRBC % 0 /100WBC (0-0.00); PLATELET COUNT 279 K/uL (150-450); RBC 3.02 M/uL (3.00-5.00); RDW-CV 15.1 % (11.9-14.6); WBC 6.5 K/uL (4.0-11.0)
[2016-08-13 06:51] LABS: ANION GAP 9.7 (10.0-19.0); CALCIUM 8.8 mg/dL (8.5-10.5); CREATININE 0.9 mg/dL (0.5-1.1); POTASSIUM 4.7 mMol/L (3.7-5.1)
--- NOTE | 2016-08-13 15:39 | NUR ---
Patient AAOX3 forgetful at times. 2L of O2. Chest tube to R) lateral side. IV to L) forearm SL. 1-2 assist. Uses commode at bedside. Has been refusing Miralax and colace because stools have been loser than normal. C/O pain in lower left leg - relieved with Nucynta and warm blanket. Last Nucynta given around 1000. On tele with no calls. Patient is taking cytotoxic drug. Good appetite.
--- NOTE | 2016-08-14 05:13 | NUR ---
A&O, forgetful at times. 2 ltrs O2 via NC. Chest tube to right side- suction at 20. 300 ml out this shift. 1-2 assist to BSC. Patient tends to "flop" down instead of lowering herself. Dilaudid at 2200. Telemetry. Taking a Cytotoxic drug, refuse container in room. Refused colace.
[2016-08-14 05:32] LABS: BASOPHIL % 0.2 %; EOSINOPHIL # 0.3 K/uL (0.0-0.5); EOSINOPHIL % 4.6 %; HEMATOCRIT 28.6 % (30.0-46.0); HEMOGLOBIN 9.3 g/dL (10.0-15.0); IMMATURE GRANULOCYTE % 0.7 %; LYMPHOCYTE # 0.6 K/uL (0.8-4.0); LYMPHOCYTE % 10.9 %; MCH 32.2 pg (27.0-34.0); MCHC 32.5 gm/dL (32.0-36.5); MONOCYTE # 0.6 K/uL (0.0-1.0); MPV 8.9 fl (9.4-12.4); NEUTROPHIL % 73.6 %; NRBC % 0 /100WBC (0-0.00); PLATELET COUNT 263 K/uL (150-450); RBC 2.89 M/uL (3.00-5.00); RDW-CV 14.9 % (11.9-14.6); WBC 5.5 K/uL (4.0-11.0)
[2016-08-14 05:45] LABS: ANION GAP 7.4 (10.0-19.0); BLOOD UREA NITROGEN 24 mg/dL (6-24); CALCIUM 8.8 mg/dL (8.5-10.5); CHLORIDE 99 mMol/L (96-110); CO2 32 mMol/L (22-32); CREATININE 0.7 mg/dL (0.5-1.1); ESTIMATED GFR (MDRD EQUATION) > 60; POTASSIUM 4.4 mMol/L (3.7-5.1); SODIUM 134 mMol/L (135-145)
--- NOTE | 2016-08-14 08:45 | NUR ---
PT MOVED TO NO RISK INTAKE IMPROVED TO 50-100%. WT STABLE. WILL CONT ENSURE BID TO MAINTAIN NUTRITION STATUS AND ASSIST NEEDED.
--- NOTE | 2016-08-14 17:17 | NUR ---
A&Ox3 - forgetful at times. 1L of O2. Chest to R) Lateral side with 100 for output.IV L) foremarm SL. 1-2 assist with gaitbelt. uses commode at bedside. PO Dilaudid x2. Loose stools. Pt. on telemetry but no calls from tele. Taking a cytotoxic drug. Pt. woke up right before shift change with small amount of emesis. Zofran was given. VSS.
--- NOTE | 2016-08-15 05:04 | NUR ---
Significant Event: Patient is alert and oriented x 3. Forgetful. VSS on 1L of O2. HRs in the 70s-80s. SBPs in 110-1 teens. Afebrile. Up with 1 assist, walker, and gait belt to bedside commode. Chest tube to right side intact, hooked to continuous suction. 130 mls of serous drainage out. No crepitus noted. Left forearm IV, saline locked. On regular diet. Dilaudid given for pain last at 0217. On hazardous drug precautions. Patient is pleasant and cooperative with care. Follow up:
--- NOTE | 2016-08-15 17:18 | NUR ---
Significant event: Up in recliner. Back brace on. To radiation therapy today. had 200 ml bile emesis. Per request took vitamins this afternoon. Chest tube intact. 50 ml out of tube. Dilaudid once for pain and Nucytna once for pain. Pleasant and cooperative with cares.
--- NOTE | 2016-08-16 05:40 | NUR ---
Significant Event: Patient alert and oriented X4. FOrgetful at times. PO dilaudid given X1 at 1900. Relief noted and slept most of shift. VItals stable and on 2 liters oxygen at night. Chest tube to R) side. ON hazardous drugs. Radiation yesterday. TLSO brace on when up. Telemetry on no calls. Follow up: Monitor oxygen
[2016-08-16 06:11] LABS: ANION GAP 9.4 (10.0-19.0); BLOOD UREA NITROGEN 23 mg/dL (6-24); CALCIUM 8.6 mg/dL (8.5-10.5); CHLORIDE 100 mMol/L (96-110); CO2 29 mMol/L (22-32); CREATININE 0.7 mg/dL (0.5-1.1); ESTIMATED GFR (MDRD EQUATION) > 60; POTASSIUM 4.4 mMol/L (3.7-5.1); SODIUM 134 mMol/L (135-145)
--- NOTE | 2016-08-16 15:39 | NUR ---
Significant Event: Patient up in chair with brace on. Dilaudid given times one so far at 0937 with relief noted. Patient did not have radiation today. Dr. Gonzalez here today and left orders for patient to have zofran orally 1 hour prior to radiation. Patient hoping this would help with nausea/emesis. Follow up: Continue to monitor.
--- NOTE | 2016-08-17 04:13 | NUR ---
Significant Event: Patient alert and orineted X4. Forgetful. Up with 1-2 person assist. TLSO brace on when up. In chair TID with meals. On hazardous drug precuations from Arimidex. Voids per commode. IV to L) forearm saline locked. Vitals stable and on 1 LIter oxygen. Telemetry on, called with 4 beats of V-tach around 0030. Dr. Walsh notified and did not order anything new. Patient Denied any need for pain meds. Slept most of night. Cooperaive with cares. Plan for radiation today around 1400. FLoat heels off bed. Chest tube to R) chest. Follow up: Monitor chest tube output
--- NOTE | 2016-08-17 17:02 | NUR ---
SIGNIFICANT EVENT: PATIENT ALERT AND ORIENTED. FORGETFUL AT TIMES. UP WITH 1 ASSIST. ON HAZARDOUS DRUG PRECAUTIONS FROM ARIMIDEX. IV TO L) FOREARM SALINE LOCKED. R) CHEST TUBE. PATIENT ON 1 L O2. COMPLAINTS OF PAIN ONLY ONCE DURING SHIFT. DILAUDID GIVEN AROUND 0915. LEFT FLOOR FOR RADIATION THERAPY AT 1400. 200ML OUT OF CHEST TUBE. ZOFRAN GIVEN PRIOR TO RADIATION AND PATIENT REPORTS NO SYMPTOMS OF NAUSEA. FOLLOW UP: CONTINUE TO MONITOR.
--- NOTE | 2016-08-17 19:25 | NUR ---
I HAVE REVIEWED AND AGREE WITH CHARTING DONE BY SN JANELLE.
--- NOTE | 2016-08-18 05:00 | NUR ---
Significant Event: Patient alert and oriented X4, forgetful at times. Up with 1 person assist to bedside commode. TLSO brace on when up. Chest tube to R) chest with 70ml out. New IV started to R) forearm, saline locked. 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 DNR. Vitals stable and on 1 liter oxygen. Telemetry on no calls. On hazardous drugs. Received radiation yesterday, and probably will have today. Premedicate with zofran about an hour before; works well for the patient. Denied need for pain meds when offered. Slept well this shift. Agreed to take colace this shift. Float heels off bed. working with PT/OT. Follow up: Monitor chest tube
--- NOTE | 2016-08-18 16:23 | NUR ---
Significant Event: pt alert and oriented. up in the recliner this shift. pt went to radiation this afternoon. . chest tube patent drained 220. to suction. pt on chemo precautions. dilaudid for pain before lunch for lt leg discomfort. zofran given before radiation. voids well 1-2 assist. unsteady. 02 at 1 lpm/nc. Follow up:
[2016-08-18 16:28] LABS: BASOPHIL % 0.2 %; EOSINOPHIL # 0.2 K/uL (0.0-0.5); EOSINOPHIL % 2.3 %; HEMATOCRIT 31.7 % (30.0-46.0); HEMOGLOBIN 10.2 g/dL (10.0-15.0); IMMATURE GRANULOCYTE % 0.6 %; LYMPHOCYTE # 0.5 K/uL (0.8-4.0); LYMPHOCYTE % 7.8 %; MCH 32.2 pg (27.0-34.0); MCHC 32.2 gm/dL (32.0-36.5); MONOCYTE # 0.8 K/uL (0.0-1.0); MPV 9.1 fl (9.4-12.4); NEUTROPHIL % 77.1 %; NRBC % 0 /100WBC (0-0.00); PLATELET COUNT 234 K/uL (150-450); RBC 3.17 M/uL (3.00-5.00); RDW-CV 13.9 % (11.9-14.6); WBC 6.5 K/uL (4.0-11.0)
[2016-08-18 16:44] LABS: ANION GAP 10.8 (10.0-19.0); CALCIUM 8.9 mg/dL (8.5-10.5); POTASSIUM 4.8 mMol/L (3.7-5.1)
--- NOTE | 2016-08-19 05:22 | NUR ---
PATIENT IS ALERT AND ORIENTATED CAN BE FORGETFUL AT TIMES. UP WITH ONE ASSIST GB TO COMMODE. TLSO BRACE WHEN UP IN CHAIR. CHEST TUBE TO R CHEST WITH 85 OUT. IV R FA SL. TELE NO CALLS. DAILY RADIATION FOR BREAST CANCER WITH METS TO SPINE. VSS ON 1 LITER OF O2. DENIES PAIN OR DISCOMFORT REFUSED PAIN MEDS. WILL VERBALIZE NEEDS.
[2016-08-19 05:31] LABS: BASOPHIL % 0.4 %; EOSINOPHIL # 0.2 K/uL (0.0-0.5); EOSINOPHIL % 4.4 %; HEMATOCRIT 28.9 % (30.0-46.0); HEMOGLOBIN 9.3 g/dL (10.0-15.0); IMMATURE GRANULOCYTE % 0.8 %; LYMPHOCYTE # 0.6 K/uL (0.8-4.0); LYMPHOCYTE % 11.4 %; MCH 32.1 pg (27.0-34.0); MCHC 32.2 gm/dL (32.0-36.5); MCV 99.7 fl (83.0-98.0); MONOCYTE % 19.1 %; MPV 9.5 fl (9.4-12.4); NEUTROPHIL # (ANC) 3.4 K/uL (1.8-7.8); NEUTROPHIL % 63.9 %; NRBC % 0 /100WBC (0-0.00); PLATELET COUNT 201 K/uL (150-450); WBC 5.3 K/uL (4.0-11.0)
[2016-08-19 05:50] LABS: ANION GAP 10.1 (10.0-19.0); CALCIUM 8.9 mg/dL (8.5-10.5); CREATININE 0.9 mg/dL (0.5-1.1); POTASSIUM 4.1 mMol/L (3.7-5.1)
--- NOTE | 2016-08-19 17:05 | NUR ---
PT. AAOX3. Up in chair most of day. Chest tube patent in right lateral side with 30mL output this shift with low continuous suction. Pt. on hazardous drug precautions. 1-2 assist with commode at bedside. VSS. 1L O2. Scant emesis this Am. Pt. refused zofran. Ambulated with PT in melvin. Regular diet with poor intake today. NO PRN given. DNR. TLSO brace when up in chair and ambulating.
--- NOTE | 2016-08-20 04:53 | NUR ---
Significant Event: Pt up in chair beginning of shift. Back to bed with TLSO brace, gait belt and walker and tolerated well. Gave pain pill early in the shift with relief noted. Chest tube to right side to suction. No c/o nausea this shift. Slept very well, repositioned throughout the night. Heels off bed. Follow up: Cont with cares.
--- NOTE | 2016-08-20 17:43 | NUR ---
Forgetful. Up w/1-2 assist, GB, walker. Tolerating regular diet. Did better w/Zofran IV (has been trying to "tough" it out). New IV to s/l'd. TLSO brace on when up. No BM today. Gave Zofran x1 and Nucynta x1. DNR. Chest tube w/60ml out.
--- NOTE | 2016-08-21 01:31 | NUR ---
SIGNIFICANT EVENT: Patient alert, oriented. Forgetful at times. Hypotensive at times - 117 to 132 over 44 to 55. Other VSS on 1L. PIV to L)hand is SL. Pain meds given by day shift - denies pain at time of assessments and refuses any pain meds this shift. Chest tube to R) side, low continuous suction. 1PA, gaitbelt and walker. Pleasant and cooperative with cares.
--- NOTE | 2016-08-21 13:07 | NUR ---
A-NUTRITION F/U DAILY RADIATION FOR BREAST CA W/METS TO THE SPINE. CT TO R)SIDE STILL IN. PT HAVING C/O NAUSEA; ZOFRAN TO BE GIVEN PRIOR TO RADIATION. PT HAS BEEN HAVING GOOD RESULTS WITH THIS SCHEDULE. LABS: NA 134, K+ 4.1,G AZALIA 85, BUN 27, PROJECT MANAGER INTERIOR DESIGN 0.9 DIET RX: REGULAR W/ENSURE ENLIVE BID. PO INTAKE HAS DECREASED FROM 50-100% AT LAST F/U TO 25-50% OVER THE LAST SEVERAL DAYS. EST NUTR NEEDS: [id number] KCALS AND 55-66 GM PROTEIN D-AT NUTRITION RISK W/DECREASED ORAL INTAKE R/T ALTERED GI FXN AEB N/V, DECREASED APPETITE, INTAKE RECORDS. I-CONTINUE W/ENSURE ENLIVE BID M/E-GOAL: PO INTAKE >/=50% BY NEXT F/U 1)F/U PO INTAKE, SUPPLEMENT, GI FXN, AND POC IN 3-5 DAYS 2)ASSIST NEEDED
--- NOTE | 2016-08-21 16:15 | NUR ---
Significant Event: PT AO. VSS, ON RA WHILE AWAKE, WAS 88% WHEN SLEEPING THIS AFTERNOON- O2 APPLIED. PT UP WITH 1PA, GAITBELT AND WALKER. WEARS TLSO BRACE WHEN UP. PT/OT WORKING WITH. PT HAS BEEN NAUSEATED THIS SHIFT. PRN ZOFRAN AT 1600. HAD 2 SMALL EMESIS. PT IS TO HAVE PO ZOFRAN PRIOR TO RADIATION- Sun- CHEST TUBE TO R) 270ML OUTPUT. HAS TAKEN IN SMALL AMOUNTS PO TODAY. DENIES PAIN. TELEMETRY ON WITH NO CALLS. PLAN IS HOME WITH SON ON DISCHARGE AFTER COMPLETES RADIATION. Follow up: MONITOR NAUSEA, HAZARDOUS DRUGS, RADIATION
--- NOTE | 2016-08-22 05:25 | NUR ---
Significant Event: PATIENT IS ALERT AND ORIENTED X4. AMBULATES WITH ONE ASSIST GB WALKER. VSS ON 1-2 L OF O2 TO KEEP SATS ABOVE 90. IS NOW A DNR. DAILY WT REGULAR DIET. HAD NUCYNTA X2 LAST NIGHT, LAST DOSE AT 0353 FOR LEG PAIN. TLSO BRACE WHEN AMBULATING. HAS HAD N/V AND LOOSE STOOLS THIS SHIFT. ON TELE WITH NO CALLS THIS SHIFT. HAzARDOUS DRUGS. HAS RADIATION MTTF. PLAN IS TO GO HOME AFTER RADIATION FINISHED. Follow up:
[2016-08-22 05:35] LABS: HEMATOCRIT 28.3 % (30.0-46.0); MCH 31.5 pg (27.0-34.0); MCHC 31.8 gm/dL (32.0-36.5); MPV 9.4 fl (9.4-12.4); PLATELET COUNT 190 K/uL (150-450); RBC 2.86 M/uL (3.00-5.00); RDW-CV 13.4 % (11.9-14.6)
[2016-08-22 05:49] LABS: ALBUMIN 2.3 gm/dL (3.5-5.0); ANION GAP 10.9 (10.0-19.0); BLOOD UREA NITROGEN 23 mg/dL (6-24); CHLORIDE 101 mMol/L (96-110); CO2 28 mMol/L (22-32); CREATININE 0.7 mg/dL (0.5-1.1); ESTIMATED GFR (MDRD EQUATION) > 60; MAGNESIUM 1.7 mg/dL (1.8-2.6); PHOSPHORUS 3.2 mg/dL (2.5-4.9); POTASSIUM 3.9 mMol/L (3.7-5.1); SODIUM 136 mMol/L (135-145)
[2016-08-22 06:07] LABS: BANDED NEUTROPHIL # 0.3 K/uL (0.0-0.1); BANDED NEUTROPHILS % 7 %; LYMPHOCYTE # 0.5 K/uL (0.8-4.0); LYMPHOCYTE % 12 %; MONOCYTE # 0.2 K/uL (0.0-1.0); SEGMENTED NEUTROPHIL # 2.8 K/uL (1.8-7.8); SEGMENTED NEUTROPHIL % 69 %
--- NOTE | 2016-08-22 13:21 | NUR ---
SPOKE TO MICHELLE AND HER NEPHEW AT THE BEDSIDE. MICHELLE HAS DECIDED THAT INSTEAD OF GOING TO STAY WITH HER SON IN [place] SHE WOULD LIKE TO GO TO SNF SO THAT SHE CAN " GET STRONGER" SHE WOULD LIKE FOR ME TO MAKE REFERRAL TO [facility] IN [facility] FOR [place]. I MADE REFERRAL TO THE [facility] HAD TO LEAVE A MESSAGE ON VOICE MAIL FOR ARAVIND TO CONTACT ME.
--- NOTE | 2016-08-22 14:32 | NUR ---
RECIEVED PHONE CALL FROM [facility]. PATIENT IS SCHEDULED THERE FOR A FOLLOW UP APPOINTMENT WITH 09/27/16 AT 1:30 PM [facility]
--- NOTE | 2016-08-22 16:15 | NUR ---
Significant event: Patient is alert and oriented, but forgetful. VSS. Currently on room air. IV to left hand is saline locked. Had radiation today. Is to have TSLO brace on at all times when up in chair and/or walking. Does not need it on while in bed. No complaints of pain today. Did have 8mg of Zofran before radiation. Does have new order for scheduled doses before meals. Did not give lunch or supper due to radiation dose. Has Florax chest drain in place to right chest. Dressing is intact. Cooperative with cares.
--- NOTE | 2016-08-23 04:35 | NUR ---
Significant Event: Patient is alert and oriented x 3. Forgetful. VSS on 1L of O2. Up with 1 assist, walker, and gait belt to bedside commode. To wear TLSO brace when up out of bed or in chair. Chest tube to right side intact, 120 mls of serous drainage out this shift. Voiding well. No BM this shift. Nucynta given for left leg pain last at 0353. Left hand IV, saline locked. On hazardous drug precautions. Receiving radiation daily. Patient is pleasant and cooperative with cares. Follow up: Radiation today.
[2016-08-23 05:01] LABS: ALBUMIN 2.6 gm/dL (3.5-5.0); ANION GAP 10.8 (10.0-19.0); CALCIUM 7.7 mg/dL (8.5-10.5); MAGNESIUM 2.3 mg/dL (1.8-2.6); POTASSIUM 4.8 mMol/L (3.7-5.1)
[2016-08-23 05:06] LABS: CREATININE 1.1 mg/dL (0.5-1.1)
--- NOTE | 2016-08-23 09:37 | NUR ---
I STILL HAVE NOT HEARD BACK FROM NBA AT [facility] IN [place]. I NOTIFIED THEM AGAIN AND SPOKE TO ARAVIND. SHE REPORTS THAT [employer] IS AT A CONFERENCE AND SHE IS THE ONE THAT I NEED TO SPEAK TO. SHE REPORTS THAT NBA WILL BE BACK LATER TODAY, SHE WILL HAVE NBA CONTACT ME.
--- NOTE | 2016-08-23 12:30 | NUR ---
RECEIVED CALL FROM YOLIOMarcelino AT [facility] IN [place]. SHE WILL BE HERE LATER THIS AFTERNOON TO EVALUATE MICHELLE FOR THEIR FACILITY. I SPOKE TO MICHELLE AND UPDATED HER SHE IS HAPPY THAT THEY ARE COMING TO TALK TO HER. SHE IS HOPING THAT SHE CAN GO THERE ONCE READY FOR DISCHARGE.
--- NOTE | 2016-08-23 15:00 | NUR ---
NBA HERE FROM [facility] AND EVALUATED MICHELLE. SHE WILL TAKE THE INFO TO THE TEAM AND GET BACK TO ME. TO WHETHER OR NOT THEY CAN ACCEPT PATIENT.
--- NOTE | 2016-08-23 16:17 | NUR ---
Forgetful. Cooperative with cares. Tolerating regular diet well w/scheduled Zofran. 24g. IV to RW w/LR @100 for 500ml then s/l; IV too small for 125ml/hr. Up w/1assist, GB, walker. Ambulated in halls and in room. TLSO brace on when up except ok to not use to BSC. Chest tube to R)chest to suction w/80ml out. [place] [facility] evaluated today. Radiation and Sunday, then completed. DNR.
--- NOTE | 2016-08-24 04:27 | NUR ---
Significant Event: Pt alert and oriented. VSS on room air until HS, then RT applied 1 liter. Repostioned while in bed. Up to BSC with 1 assist, walker and gait belt, tolerates activity well. Chest tube remains to right side with suction. Nucenta given x 2 with relief noted. Finished up 500mls bolus this shift. No c/o nausea, ate some of her tossed salad all of her peaches and some of her chicken approx 40% all together. Follow up:
[2016-08-24 05:26] LABS: HEMATOCRIT 26.1 % (30.0-46.0); HEMOGLOBIN 8.7 g/dL (10.0-15.0); MCH 32.1 pg (27.0-34.0); MCHC 33.3 gm/dL (32.0-36.5); MCV 96.3 fl (83.0-98.0); PLATELET COUNT 190 K/uL (150-450); RBC 2.71 M/uL (3.00-5.00); RDW-CV 13.4 % (11.9-14.6); WBC 4.5 K/uL (4.0-11.0)
[2016-08-24 05:41] LABS: ANION GAP 11.5 (10.0-19.0); CALCIUM 7.5 mg/dL (8.5-10.5); POTASSIUM 4.5 mMol/L (3.7-5.1)
[2016-08-24 06:22] LABS: ABSOLUTE NEUTROPHIL CT (ANC) 3.2 K/uL (1.8-7.8); BANDED NEUTROPHIL # 0.3 K/uL (0.0-0.1); BANDED NEUTROPHILS % 6 %; LYMPHOCYTE # 0.5 K/uL (0.8-4.0); LYMPHOCYTE % 12 %; MONOCYTE # 0.4 K/uL (0.0-1.0); SEGMENTED NEUTROPHIL % 66 %
--- NOTE | 2016-08-24 10:44 | NUR ---
A - NUTRITION F/U. NA+ 138, GLU 88, BUN/SENIOR DATA MODELER 23/1.0, ALB 2.6. XRT TODAY AND TOMORROW THEN COMPLETED. HAS TLSO. DIET: REGULAR W/ ENSURE BID. INTAKE 25-50%. NH TO EVAL. D - AT RISK W/ INADEQUATE ORAL INTAKE R/T DECREASED APPETITE AEB INTAKE RECORD. I - GOAL: 50% INTAKE BY DIMISSAL. M/E - CONT TO ENCOURAGE ORAL INTAKE. F/U IN 3-5 DAYS.
--- NOTE | 2016-08-24 15:00 | NUR ---
SPOKE TO NBA Douglass AT [facility] IN [place] SHE INFORMS ME THAT THEY WILL NOT BE ABLE TO ACCEPT PATIENT DUE TO THE PLUREX. I NOTIFIED. [facility] AND [facility] THEY DO NOT HAVE ANY FEMALE BEDS AND [facility] AND [facility] ARE FULL. I NOTIFIED THE [facility] AND THEY WILL NOT ACCEPT PATIENT. I SPOKE TO BRICE WITH [facility] IN [place] SHE REPORTS THAT THEY HAVE A FEMALE BED. BUT SHE IS NOT SURE THAT THEY WILL BE ABLE TO ACCEPT PATIENT WITH THE PLEUREX.SHE IS GOING TO CHECK WITH THE DIRECTOR AND SHE WILL GET BACK TO ME. I SPOKE TO MICHELLE AND UPDATED HER SHE IS NOT HAPPY ABOUT THIS AND WANTS TO THINK ABOUT IT. I NOTIFIED PADDY CH AND ALSO SPOKE TO DR. MENDEZ AND UPDATED HIM. WILL AWAIT CALL FROM BRICE.
--- NOTE | 2016-08-24 16:26 | NUR ---
Significant event: Patient is alert and oriented, is forgetful at times. IV to right thumb/wrist area, saline locked. Had 1 emesis this morning. Try to use compazine. Order for pepcid q day. Chest drain in place, had 70ml out. Is 1 assist with gait belt and walker. Uses bedside commode. Has TLSO brace and needs to be on when up. Cooperative with cares.
--- NOTE | 2016-08-24 16:30 | NUR ---
RECEIVED CALL FOR BRICE WITH [facility] [facility] SHE REPORTS THAT THEY WILL ACCEPT PATIENT WITH PLEURAX. I TOLD HER THAT PATIENT WILL BE READY FOR DISCHARGE TOMORROW,BRICE WOULD LIKE FOR ME TO FAX INFO TO HER, SHE WILL MEET WITH THE TEAM AND GET BACK TO ME TOMORROW TO WHEN THEY CAN ACCPET PATIIENT.MICHELLE WOULD LIKE A PRIVATE ROOM AND BRICE REPORTS THAT ALL THEIR ROOMS ARE PRIVATE. I FAXED INFO TO BRICE WILL AWAIT CALL BACK FROM HER.
--- NOTE | 2016-08-25 05:21 | NUR ---
PT. AA&OX3. Forgetful at times. IV to R thumb/wrist area. Mary KRISHNA ordered 500Ml fluid bolus 1x. No zofran or compazine given. Last pain med at 1900. Slept through night. 1x to commode. Chest tube to R) lateral with 100mL out this shift. 1A with walker and gaitbelt. Uses commode. Has RLSo brace and needs to be on when up. Cooperative with cares. Poor diet. Radiation today in PM.
[2016-08-25 05:48] LABS: ALBUMIN 2.3 gm/dL (3.5-5.0); ANION GAP 11.3 (10.0-19.0); CALCIUM 7.3 mg/dL (8.5-10.5); CREATININE 0.9 mg/dL (0.5-1.1); MAGNESIUM 2.1 mg/dL (1.8-2.6); PHOSPHORUS 2.4 mg/dL (2.5-4.9); POTASSIUM 4.3 mMol/L (3.7-5.1)
--- NOTE | 2016-08-25 12:55 | NUR ---
[id number] RECEIVED REFRRAL THAT PATIENT CAN TRANSFERE TO THE [facility] TODAY. I SPOKE TO BRICE WITH THE [facility] AND SHE REPORTS THAT THEY CAN ACCEPT PATIENT. I SPOKE TO Miguel CH AND SHE WILL COMPLETE THE TRANSFERE ORDERS, I SPOKE TO DR. MENDEZ AND UPDATED HIM WELL. I SPOKE TO MICHELLE SHE IS HAPPY THAT SHE CAN GO TO THE SN[facility] TODAY. HER NEPHEW [facility]LEXA WILL BE TRANSPORTING HER. I SPOKE TO JANENE AT THE [facility] AND SHE WILL ARRANGE FOR PATIENT TO HAVE HER RADIATION AT 1300 SO THAT MICHELLE CAN LEAVE SOONER FOR BROKEN [place]. I SPOKE TO PIO MA APRN SHE HAS COMPLETED THE PAPER WORK FOR THE PLEURAX AND HAS PLACE THE PROPER TUBING TO THE SITE ON PATIENT. SPOKE WITH PATIENT'S SON KAILYN UPDATED HIM ON THE DISCHARGE PLANS HE IS PLANNING ON MICHELLE COMING TO STAY WITH HIM ONCE MICHELLE FEELS READY TO GO THERE. FAXED COMPLETED PAPER WORK FOR THE PLEURAX TO THE [employer] AND TO [facility] AND PLACED THE ORIGINALS PAPER WORK IN THE PACKET FOR THE SNF. I NOTIFIED LESLEY WITH [facility] AND UPDATED HER ON THE DISHCARGE PLANS WELL. SHE REPORTS THAT THEY WILL PLAN ON SEEING PATIENT AT HER SON'S HOME ONCE SHE IS DISCHARGE THERE. COMPLETED ORDERS AND PAPER WORK FAXED TO BRICE [phone].
--- NOTE | 2016-08-25 13:03 | NUR ---
Transfer note: Patient is alert and oriented x3. Is occasionally forgetful. Has a pleurax chest drain to right lateral chest, is currently clamped. Needs to be drained every other day, see specific orders in packet. Is a 1-assist with walker and gaitbelt. Is able to ambulate, short to moderate distances. Needs to have TLSO brace on at all times when up, may remove while in bed. Was admitted on 07/31/16 with weakness in lower extremities, back pain, and had fallen. Has a history of metastatic breast cancer, with bilateral mastectomy, non-Hodgkin lymphoma, hip fx, HTN, Atrial fib, and thoracic aneurysm.During this stay, she has had discitis of L4-S1 and right pleural effusion. Has had occasional mushy stools. Is continent of bowel and urine. Also has had trouble with nausea. Does have a decreased appetite. Routine zofran has been given before meals, this does help some. Is a very pleasant lady and is cooperative with cares.
== END 2016-08-25 15:30 | DRG 477 ==
LOC: GMSU 19:30
PROVIDERS: Family Medicine; Internal Medicine; Nurse Practitioner Family; Nurse Practitioner Women's Health; Physician Assistant; Thoracic Surgery (Cardiothoracic Vascular Surgery); ADMIT Internal Medicine
DX: C79.51 Secondary malignant neoplasm of bone (principal); J96.01 Acute respiratory failure with hypoxia; J91.0 Malignant pleural effusion; N17.9 Acute kidney failure, unspecified; C78.00 Secondary malignant neoplasm of unspecified lung; C78.01 Secondary malignant neoplasm of right lung; C78.1 Secondary malignant neoplasm of mediastinum; C78.7 Secondary malignant neoplasm of liver and intrahepatic bile duct; Z51.5 Encounter for palliative care; G47.34 Idiopathic sleep related nonobstructive alveolar hypoventilation; K31.84 Gastroparesis; G83.4 Cauda equina syndrome; E87.1 Hypo-osmolality and hyponatremia; R13.10 Dysphagia, unspecified; M46.47 Discitis, unspecified, lumbosacral region; I48.0 Paroxysmal atrial fibrillation; I10 Essential (primary) hypertension; I71.2 Thoracic aortic aneurysm, without rupture; Z85.3 Personal history of malignant neoplasm of breast; Z85.72 Personal history of non-Hodgkin lymphomas; Z66 Do not resuscitate; R29.6 Repeated falls; Z92.3 Personal history of irradiation; Z92.21 Personal history of antineoplastic chemotherapy; R11.2 Nausea with vomiting, unspecified; I95.9 Hypotension, unspecified; G47.00 Insomnia, unspecified; I08.2 Rheumatic disorders of both aortic and tricuspid valves; I27.2 Other secondary pulmonary hypertension; K59.00 Constipation, unspecified; M81.0 Age-related osteoporosis without current pathological fracture; Z96.641 Presence of right artificial hip joint; R53.1 Weakness; D53.9 Nutritional anemia, unspecified; K08.89 Other specified disorders of teeth and supporting structures; F41.9 Anxiety disorder, unspecified
CPT/HCPCS: A9552; A9577; C1729; C1751; G0237; G0424; J0690; J1100; J1644; J1650; J2001; J2405; J2765; J3475; J3489; J7030; J7040; J7050; J7120; P9045; Q0162; Q0164; Q9967